=== PATIENT | female | born 1960 | race Caucasian/White ===

== ENCOUNTER → 2016-06-13 | Outpatient (CLI) | payer OTHER ==
[~2016-06-13] MED LIST: ACETAMINOPHEN-H1 TA2 PO; BUMETANIDE0.25 MG/ML PO; BUMETANIDE1 MG PO; BUMEX2.5 MG/10 IV; CEFAZOLIN2 GM/50 ML IV; CLEOCIN IV; CLINDAMYCIN HC300 MG PO; DOXYCYCLINE100 M3 PO; GENTAMICIN T; HYDROCODONE BIT1 T11 PO; IRON325 M3 PO; K-LOR20 MEQ PO; KLOR-CON M2020 ME1 PO; LASIX40 MG PO; LOSARTAN POTASS50 M1 PO; MERREM IV1 GM IV; ONDANSETRON ODT4 MG PO; PRIMAXIN 500 M500 MG IV; PROAIR HFA0.09 MG/AC PO; SILVADENE,SSD C50 GM T; VICODIN 5-3001 EACH PO; VITAMIN D50000 I3 PO; [UNRECOGNIZED DRUG - OTHER] IV
--- NOTE | ~2016-06-13 | PR ---
[place], [place] PROGRESS NOTE NAME: CAMRYN RAYMUNDO UNIT #: [id number] ROOM: DOCTOR: NISH ColemanSTAN BIRTHDATE: [birth year] DOS: 06/13/2016 A NEW WOUND CARE PROGRESS NOTE CHIEF COMPLAINT: Followup postop wound. HISTORY OF PRESENT ILLNESS: This is a patient known to me from last year. 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 She had had a fairly large wound there in the pannus area that was repeatedly getting infected, causing her pain, discomfort with multiple admissions for cellulitis. She eventually was seen by Dr. Ibrahim in the [facility], who is a plastic surgeon and underwent panniculectomy of this area. This was back in December. We have not seen her in the wound clinic since last July. After her surgery, she was admitted to [facility] for wound care therapy, she had been there for several months until just safely discharged home. She had a wound VAC on for several of those months and the wound VAC was just recently discontinued. The wound continued to heal fairly well with the wound VAC. She had a couple episodes where she said it looked like the wound had been getting infected and they had to use Dakin solution for it and most recently the foam has been kind of sliding around and is relatively shallow and causing more irritation than anything, so the wound VAC was discontinued, so she comes to our clinic for further wound care. She still does have an open area where the surgery had taken place. PAST MEDICAL HISTORY: Significant for cellulitis of the left lower leg, large pannus formation with deep seated wound and tunneling, morbid obesity, adult failure to thrive. She does have a history of hypertension, history of lymphedema, arthritis, asthma, x 2, exploratory laparotomy, hernia repair x 2. FAMILY HISTORY: Significant for diabetes. SOCIAL HISTORY: She smokes every day. Rarely drinks alcohol. ALLERGIES: PENICILLIN, BEES AND SURGICAL TAPE. MEDICATIONS: Are as follows: The last documented medication list that I have on our records include, this is a list back in 07/2015, gabapentin 300 mg at bedtime, losartan 50 mg daily, iron sulfate 325 daily, Bumex 1 mg twice daily, vitamin D2 50,000 unit capsule weekly on Saturday. Other than pain at the surgical site, she offers no other specific complaints. No documented fevers, no shortness of breath, no nausea or vomiting or diarrhea. OBJECTIVE: VITAL SIGNS: Are as follows: Temperature is 98.1, pulse of 74, respirations 18, blood pressure is 128/80. EXTREMITIES: The wound itself is measuring the following 2.7 cm in length x 13 cm in width and 0.1 in depth. There is some minimal fibrin slough present in the base of the wound, but overall looks fairly clean. There is no evidence of [place], [place] PROGRESS NOTE NAME: CAMRYN RAYMUNDO UNIT #: [id number] ROOM: DOCTOR: STAN MOCK M.D. BIRTHDATE: [birth year] cellulitis. It is a fairly shallow wound, but it is located kind of in the crevasse of the upper thigh area. No debridement was done. ASSESSMENT AND PLAN: The patient has a history of lymphedema with panniculectomy done and this past December with an open surgical wound that has been healing well with the wound VAC. The wound VAC has been discontinued. We will use an alginate for now for absorptive purposes. She has been using an ABD pad as well and Tegaderm to help keep the dressing in place. She has home health, who will help her with dressing changes and she is to follow back up in the wound clinic in one week. STAN MOCK MD CM:PATI [id number] STAN MOCK M.D. 06/14/16 1051 interface
== END ==
LOC: WOUNDCARE 01:25
DX: L97.122 Non-pressure chronic ulcer of left thigh with fat layer exposed (principal); I89.0 Lymphedema, not elsewhere classified; E66.01 Morbid (severe) obesity due to excess calories; I10 Essential (primary) hypertension; J45.909 Unspecified asthma, uncomplicated; F17.210 Nicotine dependence, cigarettes, uncomplicated; Z72.89 Other problems related to lifestyle

== ENCOUNTER → 2016-06-20 | Outpatient (CLI) | payer OTHER ==
--- NOTE | ~2016-06-20 | PR ---
[place], [place] PROGRESS NOTE NAME: CAMRYN RAYMUNDO UNIT #: [id number] ROOM: DOCTOR: NISH ColemanSTAN BIRTHDATE: [birth year] DOS: 06/20/2016 WOUND CARE FOLLOWUP NOTE CHIEF COMPLAINT: Open wound of the left thigh. HISTORY OF PRESENT ILLNESS: The location of the wound has been present since December. She had a panniculectomy done for severe lymphedema and pannus formation of the left upper thigh. She was in a rehabilitation center postoperatively for many months and was discharged home just recently. She came here for the wound care followup just last week. At that time, she still had an open wound from the surgical site that looked shallow. She had been on a Maxorb dressing with a Tegaderm adhesive to keep it in place as she had difficulty holding any dressings in place. We kept that dressing going; however, she noticed for the past couple of days it has been draining a lot more than before and the measurements are a lot bigger. PHYSICAL EXAMINATION: VITAL SIGNS: She is afebrile, pulse is 76, respirations 18, blood pressure is 134/92 and temperature is 98.2. WOUND EXAM: The wounded area is measuring bigger at 3.3 x 13.9 x 0.1. However, even around that the periwound area is markedly excoriated and what appears to be some epidermal denuding just from moisture, I believe. A culture of the wound was taken today for swab culture, but no debridement was done. The base of the wound itself looks fairly clean. ASSESSMENT AND PLAN: Increased drainage of a postop wound. There may be some element of bioburden here, so we will add silver to the dressing. She is on Maxorb, we will do Maxorb Silver and have her cover it with a foam. I think an Optifoam Gentle Sacrum will fit this wound as the Tegaderm is not very forgiving and does not have any absorptive properties at all and I think this is not going to be working for her at the present time and I would favor changing it on the daily basis until we get this drainage under control. A small bit of Betadine was applied to the periwound area where there was some drainage just coming through. So, we will go ahead and have her do this and have her follow up in one week. [place], [place] PROGRESS NOTE NAME: CAMRYN RAYMUNDO UNIT #: [id number] ROOM: DOCTOR: STAN MOCK M.D. BIRTHDATE: [birth year] STAN MOCK MD CM:PNTRANS [id number] STAN MOCK M.D. 06/20/16 1408 interface
== END ==
LOC: WOUNDCARE 02:48
DX: L97.122 Non-pressure chronic ulcer of left thigh with fat layer exposed (principal); I89.0 Lymphedema, not elsewhere classified; I48.91 Unspecified atrial fibrillation

== ENCOUNTER → 2016-07-04 | Outpatient (CLI) | payer OTHER ==
--- NOTE | ~2016-07-04 | PR ---
[place], [place] PROGRESS NOTE NAME: CAMRYN RAYMUNDO [facility] #: [id number] UNIT #: [id number] ROOM: DOCTOR: NISH ColemanSTAN BIRTHDATE: [birth year] DOS: 07/04/2016 CHIEF COMPLAINT: Open wound of the left thigh. HISTORY OF PRESENT ILLNESS: The location of the wound has been present since December. She had a panniculectomy done for severe lymphedema and pannus formation with recurrent ulcers and chronic recurrent cellulitis. This is of the upper left thigh. She was just recently discharged from rehabilitation center to home; she had a wound VAC on until just upon her discharge. We saw her approximately 2 weeks ago she missed her last appointment and it looked like the wound, which had been draining more and margins were increased and there was area of increased denuded skin to excessive of drainage. Her dressing was placed to a silver dressing and foam instead of Tegaderm. Cultures were obtained. The culture was positive for acinetobacter sensitive to quinolones. The patient was started on ciprofloxacin for a 2-week course. She is still on the antibiotics going to be completing them soon. She has no specific complaints. Overall, she is noticed less drainage and is wondering if she can use her lymphedema pumps. The pumps go all the way up her body and she is anxious to resume use of them. PHYSICAL EXAMINATION: VITAL SIGNS: She is afebrile, pulse is 80, respirations 18, and blood pressure is 134/86. The wound is measuring slightly smaller 2.5 x 12.5 x 0.1. There is some epithelialization noted within those margins as well in the upper part of the wound. There is really no necrotic tissue present. The debridement was not done at this time. ASSESSMENT AND PLAN: Chronic ulcer of the left upper thigh secondary to surgery. It is definitely seems to be improved this week from the last time we have seen her. I will continue with the same dressing. She is going to continue to complete her antibiotic course. I did advise that she can try her lymphedema pumps as long as she may notice some increased drainage, but as long as the wound margins they continue to improve it is okay, but if the wound margins look like they are getting bigger, we may have to hold off until the wound is healed more. Followup is in one week. [place], [place] PROGRESS NOTE NAME: CAMRYN RAYMUNDO UNIT #: [id number] ROOM: DOCTOR: STAN MOCK M.D. BIRTHDATE: [birth year] STAN MOCK MD CM:PATI [phone] STAN MOCK M.D. 07/04/161631 interface
== END ==
LOC: WOUNDCARE 02:23
DX: L97.122 Non-pressure chronic ulcer of left thigh with fat layer exposed (principal); I89.0 Lymphedema, not elsewhere classified; I48.91 Unspecified atrial fibrillation

== ENCOUNTER → 2016-07-11 | Outpatient (CLI) | payer OTHER ==
--- NOTE | ~2016-07-11 | PR ---
[place], [place] PROGRESS NOTE NAME: CAMRYN RAYMUNDO UNIT #: [id number] ROOM: DOCTOR: NISH ColemanSTAN BIRTHDATE: [birth year] DOS: 07/11/2016 CHIEF COMPLAINT: Open wound of the left thigh. HISTORY OF PRESENT ILLNESS: The location of the wound is present since December. She is status post panniculectomy done for severe lymphedema and pannus formation, which had recurrent ulcers and chronic recurrent cellulitis of the left upper thigh. She has been to the Wound Clinic now for approximately 4 weeks now. The wound was notably draining moderate amounts of drainage. Cultures were taken and it did grow Acinetobacter. She was treated with ciprofloxacin for 14 days, which seemed to really help the wound and the drainage at that time. However, she comes back today stating that it is still draining. She has finished her antibiotics. It is draining a fair amount as before, but it is slightly increased in tenderness especially above the wound, not on the wound itself but above the wound, it seems to be more tender and erythematous than before. It is also weeping up on that area. It is very difficult trying to get a dressing on that area that stays in place. I had recommended a foam over Maxorb silver; however, she continues to apply Tegaderm to that area. She did have a fair amount of denuded skin last week and continues to have an area where it looks like it is denuded from excessive drainage and possibly from trauma from the Tegaderm. She has no other specific complaints. PHYSICAL EXAMINATION: VITAL SIGNS: As follows, temp is 98.1, pulse of 88, respirations 20, blood pressure is 136/86. The wound is measuring smaller at 2 cm x 12.5 x 0.1. It definitely appear smaller to me than when she first came in. There is minimal fibrin slough present in the base of the wound. The periwound has some areas of denuded skin from what appears to be excessive drainage and possible trauma from the Tegaderm or Opsite that hat she is using to help hold the dressing in place, but the wound itself is looking pretty good and does appear to be healing in general. Due to the continued drainage and discomfort that she is complaining about, a culture was taken of the area. I did swab the denuded area with Betadine to see if we could help dry this up a little bit more, debridement was not done. ASSESSMENT AND PLAN: Surgical wound secondary to lymphedema. The wound itself is slowly healing; however, we continued to have some problems with drainage and we are having difficulty trying to keep the dressing in place. I would like to try to get away from Opsite or Tegaderm because it may be causing increased trauma to the skin. We will continue with the Maxorb silver. A culture was taken. I will put her on empiric doxycycline for now and then have her use a Superabsorbent secondary dressing such as Mextra. This was used today and we can order that or perhaps OptiLock for her to see if we can help control some of the drainage. Followup is in 1 week. If we continue to have issues with that, we will consider going to Iodosorb and an alginate to help dry up the area a bit more if we need to. Follow up in 1 week. She is to call us to let us know if she likes the secondary dressing or not. [place], [place] PROGRESS NOTE NAME: CAMRYN RAYMUNDO UNIT #: [id number] ROOM: DOCTOR: STAN MOCK M.D. BIRTHDATE: [birth year] STAN MOCK MD CM:PNHAYLEE [phone] STAN MOCK M.D. 07/12/16 0349 interface
== END ==
LOC: WOUNDCARE 03:00
DX: L97.122 Non-pressure chronic ulcer of left thigh with fat layer exposed (principal); I89.0 Lymphedema, not elsewhere classified

== ENCOUNTER → 2016-07-18 | Outpatient (CLI) | payer OTHER ==
--- NOTE | ~2016-07-18 | PR ---
[place], [place] PROGRESS NOTE NAME: CAMRYN RAYMUNDO UNIT #: [id number] ROOM: DOCTOR: STAN MOCK M.D. BIRTHDATE: [birth year] DOS: 07/18/2016 CHIEF COMPLAINT: Open wound of the left thigh. HISTORY OF PRESENT ILLNESS: Location: The wound has been present on the left upper thigh secondary to panniculectomy done for severe lymphedema and pannus formation. She was left with an open wound since December, which has been slowly healing. She has been coming to the Wound Care Clinic for 5 weeks now. Last week when she was here, she had increased drainage and discomfort. There was a lot of weeping around the area and redness and pain around the periwound area. She was started empirically on doxycycline. A culture was taken, which did not grow anything. It was negative. She says overall she is doing much better, drainage seems less. Pain is much improved, redness is improved as well. No fevers or chills. PHYSICAL EXAMINATION: VITAL SIGNS: Stable. Temperature is 98.2, pulse is 90, respirations 20, blood pressure is 140/86. WOUND EXAM: The wound is located in the left upper thigh area, medial aspect is measuring 2 x 13 x 0.1 cm. There is minimal fibrin slough. There is good healthy granulation tissue. The periwound area is much less excoriated than before. There is still some slight maceration, but overall the redness around the periwound is much improved from last week. Debridement was deferred at this time. ASSESSMENT AND PLAN: Surgical wound secondary to lymphedema. It is definitely improving in the width. The length is still about the same. There is definitely an improvement as far as drainage goes. I would like to continue with the current dressings since she still has at least a week's worth at home of Maxorb silver and then after that, we could consider going to Iodosorb and alginate together instead to help dry the wound up even further. We will consider this next week. Followup is in 1 week. The patient is going to continue with her antibiotics. [place], [place] PROGRESS NOTE NAME: CAMRYN RAYMUNDO UNIT #: [id number] ROOM: DOCTOR: STAN MOCK M.D. BIRTHDATE: [birth year] STAN MOCK MD CM:PATI [id number] TSAN MOCK M.D. 07/18/16 2355 interface
== END ==
LOC: WOUNDCARE 01:14
DX: L97.122 Non-pressure chronic ulcer of left thigh with fat layer exposed (principal); I89.0 Lymphedema, not elsewhere classified

== ENCOUNTER → 2016-07-25 | Outpatient (CLI) | payer OTHER ==
--- NOTE | ~2016-07-25 | PR ---
[place], [place] PROGRESS NOTE [id number] UNIT #: [id number] ROOM: DOCTOR: STAN MOCK M.D. BIRTHDATE: [birth year] DOS: 07/25/2016 SUBJECTIVE: This is routine wound care followup. CHIEF COMPLAINT: Open ulcer of the left thigh. HISTORY OF PRESENT ILLNESS: The location of the wound is on the left upper thigh secondary to panniculectomy done for severe lymphedema and pannus formation. She was left with an open wound since the surgery in December. It has been slowly healing. She has been coming to the Wound Clinic for 6 weeks now. Comorbid conditions are morbid obesity. She says overall she is doing much better. There is really no pain at the present time, which is a definite improvement. No fevers or chills are noted. PHYSICAL EXAMINATION: VITAL SIGNS: As follows: She is afebrile, pulse is 90, respirations 20, blood pressure is 124/82. WOUND EXAM: The wound is measuring 1.8 x 12.2 x 0.1. There is minimal fibrin slough around the periwound area and just kind of scattered throughout. There is still exposed subcutaneous tissue. A debridement was done today to remove fibrin and slough. This was accomplished with a curette. There was minimal bleeding. The only tissue removed was just nonviable fibrin and slough only. The patient tolerated the debridement well. Cetacaine spray was used for topical anesthesia. A curet was utilized, 100% of the wound was debrided selectively. The patient tolerated the debridement well. ASSESSMENT AND PLAN: Surgical wound, status post panniculectomy the wound is steadily improving and slowly healing. She continues to have problems with some drainage, but the Maxorb silver seems to be holding it steady for now. We will continue with this dressing. She has at least a week's worth of the dressing material at home, after that we may want to consider trying Iodosorb and Maxorb together. Followup is in one week. STAN MOCK MD CM:PATI [phone] STAN MOCK M.D. 07/26/16 0158 interface
== END ==
LOC: WOUNDCARE 01:10
DX: L97.122 Non-pressure chronic ulcer of left thigh with fat layer exposed (principal); I89.0 Lymphedema, not elsewhere classified; E66.01 Morbid (severe) obesity due to excess calories; I48.91 Unspecified atrial fibrillation

== ENCOUNTER → 2016-08-01 | Outpatient (CLI) | payer OTHER ==
--- NOTE | ~2016-08-01 | PR ---
[place], [place] PROGRESS NOTE NAME: CAMRYN [facility]AY[facility]UNDO [facility] #[facility] [id number] UNIT #: [id number] ROOM: DOCTOR: NISH ColemanSTAN BIRTHDATE: [birth year] DOS: 08/01/2016 CHIEF COMPLAINT: Followup of open ulcer of the left thigh. HISTORY OF PRESENT ILLNESS: Location of the wound is on the left upper thigh. It is secondary to panniculectomy done for severe lymphedema and pannus formation. She was left with a very large open wounds in December that has been gradually healing. She had a wound VAC on for several months and has been coming to the Wound Clinic after the wound VAC was discontinued for approximately 7 weeks now. Comorbid conditions are morbid obesity. Overall, she is doing better. She still has some discomfort around the periwound area from excessive drainage or irritation from dressings, but overall she feels it is definitely getting better. No fevers or chills are noted. PHYSICAL EXAMINATION: VITAL SIGNS: Stable. Temperature is 98.3, pulse of 88, respirations 20, blood pressure is 130/84. SKIN: The wound is measuring 1.8 x 10.5 x 0.1. There is definitely improvement in reduction in the area of the wound. There is minimal fibrin slough present in the base of the wound. There is exposed granulation tissue. The periwound does not appear to be infected. There is some moisture noted on the periwound from wound fluid dripping on to it, so that area is quite moist, so there is no obvious cellulitis noted. A selective debridement was done. The tissue removed was fibrin, slough and only this was a selective debridement. The instrument utilized was a curette. There was minimal bleeding that was controlled with pressure. Post-debridement measurements are unchanged. The patient tolerated the debridement well. Cetacaine spray was used for topical anesthesia. ASSESSMENT AND PLAN: Open ulcer of the left thigh, which is gradually improving. She still has quite a large amount of drainage still. There is no obvious sign of infection. She has been on Maxorb silver for some time. I would like to add Iodosorb to the regimen with plain Maxorb to see if we can help control the drainage a little bit better. We have tried using Stratasorb as secondary to dressing with the Tegaderm as the Tegaderm does somewhat pull the skin, so we will see if that will help a little bit more in the periwound area to help prevent excoriation. Follow up in 1 week. [place], [place] PROGRESS NOTE NAME: CAMRYN RAYMUNDO UNIT #: [id number] ROOM: DOCTOR: STAN MOCK M.D. BIRTHDATE: [birth year] STAN MOCK MD CM:PATI [phone] STAN MOCK M.D. 08/02/16 0257 interface
== END | disposition home or self-care (01) ==
LOC: WOUNDCARE 01:29
DX: L97.122 Non-pressure chronic ulcer of left thigh with fat layer exposed (principal); I89.0 Lymphedema, not elsewhere classified; E66.01 Morbid (severe) obesity due to excess calories

== ENCOUNTER → 2016-08-08 | Outpatient (CLI) | payer OTHER ==
--- NOTE | ~2016-08-08 | PR ---
[place], [place] PROGRESS NOTE NAME[id number] UNIT #: [id number] ROOM: DOCTOR: STAN MOCK M.D. BIRTHDATE: [birth year] DOS: 08/08/2016 CHIEF COMPLAINT: Open ulcer of the left thigh. HISTORY OF PRESENT ILLNESS: The location is the left upper thigh secondary to panniculectomy for severe lymphedema and pannus formation. She is left with a very large open wound after surgery since December and has been slowly healing. She has been coming to the Wound Clinic for 7 weeks now. She really does not have any new complaints. She says it is still drains quite a bit at times really depending on her level of activity and if she has her legs dangling down, it drains a lot more. There is no pain. No fevers or chills are noted. She has her help her change her dressings. She also has home health coming in. PHYSICAL EXAMINATION: VITAL SIGNS: She is afebrile, pulse of 82, respirations 20, blood pressure is 124/90. EXTREMITIES: The wound is measuring 2.5 x 11 x 0.1. There is still some maceration around the jone-wound. The granulation tissue appears healthy and clean with no visible necrotic tissue and there is no evidence of cellulitis. ASSESSMENT AND PLAN: Ulcer of the left thigh secondary to surgery, it seems to be taking quite some time for healing to occur. There is epithelialization around the jone-wound. There is no sign of an acute infection. We do have some difficulty with drainage and I would like to continue with an alginate, but I would like to add a collagen to the base of the wound first. So we will go ahead and do that this week and have her follow up in one week. STAN MOCK MD CM:PATI [phone] STAN MOCK M.D. 08/09/16 0416 interface
== END ==
LOC: WOUNDCARE 03:04
DX: L97.122 Non-pressure chronic ulcer of left thigh with fat layer exposed (principal); I89.0 Lymphedema, not elsewhere classified

== ENCOUNTER → 2016-08-22 | Outpatient (CLI) | payer OTHER ==
--- NOTE | ~2016-08-22 | PR ---
[place], [place] PROGRESS NOTE NAME: CAMRYN RAYMUNDO [facility] #: [id number] UNIT #: [id number] ROOM: DOCTOR: NISH ColemanSTAN BIRTHDATE: [birth year] DOS: CHIEF COMPLAINT: Chronic ulcer of the left thigh. HISTORY OF PRESENT ILLNESS: Location of the wound is the left upper thigh secondary to a panniculectomy that she had for severe lymphedema and pannus formation. She was left with a fairly large open wound after surgery back in December that has been slowly healing. She has been coming to the Wound Clinic for 10 weeks now, although she missed her appointment last week and we have not seen. She has no fevers or chills that she is aware of, but she is complaining of increasing pain in the left thigh. She does have a frequent bouts of pain and discomfort in the thigh area. She does have a large amounts of drainage. She says it still drains quite a bit and the drainage does tend to adhere to the surrounding skin which irritates the area quite a bit and there is increased drainage and discomfort on days when she is more active. We have a hard time getting a dressing to stay on the wound due to the location of it. It is quite difficult area to keep the dressing on. So, she does have some pain and discomfort of the left upper thigh when the area is touched which she had not complain of pain in the last couple of times I had seen her. PHYSICAL EXAMINATION: She is afebrile, pulse of 80, respirations 20, blood pressure is 130/92. The wound is marginally improved in the measurements at 2 x 12 x 0.1. There is granulation tissue. There is exposed subcutaneous tissue. There is also surrounding maceration around the jone-wound. There is also some fibrin slough present in the base of the wound. The left upper thigh area is markedly excoriated. There is some wetness there from persistent drainage and it is slightly warm and mildly to moderately tender with the palpation and it is about the area of . The rest of the periwound area looks good. A debridement was done today. The tissue removed was fibrin, slough and subcutaneous tissue. There was minimal amount of bleeding that was controlled with pressure. Post-debridement measurements are unchanged. The patient tolerated the debridement well. ASSESSMENT AND PLAN: Chronic surgical wound of the left thigh secondary to panniculectomy. It still has not made a whole lot of progress. I think that most difficult thing is controlling the drainage and having a dressing adhere to the wound in a consistent fashion. I would like to continue with alginate for now. Perhaps, we can consider changing it to a Mepitel transfer to see if this would better absorb drainage. Around the periwound area where it is quite excoriated, I would like to try Calazime and then Versatel over that because she still uses Tegaderm and I think Tegaderm is persistently causing excoriation and problems with pain. It does appear that there may be a mild early cellulitis starting. So, we will start the patient empirically on doxycycline twice a day now for 10 days and have her follow up in one week. I did ask the patient to go ahead and get some blood work done, so hopefully we will get those results before her next appointment. At some point, we may want to consider perhaps going back to the wound VAC just to help control some of the excessive drainage, so we will discuss this with the patient upon her next visit. [place], [place] PROGRESS NOTE NAME: CAMRYN RAYMUNDO UNIT #: [id number] ROOM: DOCTOR: STAN MOCK M.D. BIRTHDATE: [birth year] STAN MOCK MD CM:PNHAYLEE [id number] STAN MOCK M.D. 08/23/166 interface
[2016-08-22 11:05] LABS: BASO # 0.1 10*3/uL (0.0-0.1); BASO % 0.9 % (0.0-1.0); EOS # 0.1 10*3/uL (0.0-0.4); EOS % 1.2 % (1.0-4.0); HEMATOCRIT 43.2 % (37.0-47.0); HEMOGLOBIN 13.7 g/dl (12.0-16.0); LYMPH # 0.9 10*3/uL (1.3-4.4); LYMPH % 15.8 % (27.0-41.0); MEAN CELL VOLUME 89.3 fl (81.0-99.0); MEAN CORPUSCULAR HGB 28.3 pg (27.0-31.0); MEAN CORPUSCULAR HGB CONC 31.7 g/dl (33.0-37.0); MEAN PLATELET VOLUME 11.5 fl (9.6-12.3); MONO # 0.4 10*3/uL (0.1-1.0); MONO % 7.2 % (3.0-9.0); NEUT # 4.3 10*3/uL (2.3-7.9); NEUT % 74.6 % (47.0-73.0); PLATELET COUNT AUTOMATED 280 10*3/uL (130-400); RED BLOOD COUNT 4.84 10*6/uL (4.10-5.10); RED CELL DISTRI WIDTH 14.4 % (0-14.5); WHITE BLOOD COUNT 5.8 10*3/uL (4.8-10.8)
[2016-08-22 11:33] LABS: ALBUMIN 3.1 gm/dl (3.1-4.5); ALKALINE PHOSPHATASE 84 U/L (45-117); BILIRUBIN, TOTAL 0.5 mg/dl (0.2-1.0); BUN 11 mg/dl (7-24); CARBON DIOXIDE 32 mmol/L (21-32); CHLORIDE 105 mmol/L (98-107); EST GLOM FILT AFRICAN AMERICAN > 60 ml/min; GLUCOSE 100 mg/dL (65-99); SGOT/AST 14 IU/L (3-35); SGPT/ALT 17 U/L (12-78); SODIUM 142 mmol/L (136-145); TOTAL PROTEIN 7.8 gm/dL (6.4-8.2)
[2016-08-22 11:34] LABS: PREALBUMIN 15 mg/dl (20-40)
== END | disposition home or self-care (01) ==
LOC: WOUNDCARE 02:29 → LAB 02:29 → WOUNDCARE 09:45
PROVIDERS: Internal Medicine
DX: T81.89XA Other complications of procedures, not elsewhere classified, initial encounter (principal)

== ENCOUNTER → 2016-08-29 | Outpatient (CLI) | payer OTHER ==
--- NOTE | ~2016-08-29 | PR ---
[place], [place] PROGRESS NOTE NAME: CAMRYN RAYMUNDO UNIT #: [id number] ROOM: DOCTOR: NISH ColemanSTAN BIRTHDATE: [birth year] DOS: 08/29/2016 ROUTINE WOUND CARE FOLLOWUP CHIEF COMPLAINT: Chronic ulcer of the left thigh. HISTORY OF PRESENT ILLNESS: Location of the wound is the left upper thigh secondary to panniculectomy, which she had back in December. The wound has been steadily but very slowly healing. We have a lot of issues with controlling the drainage and due to where the location of the wound is, it is difficult trying to get a dressing to stick on the area. She uses the Tegaderm to help hold the dressing in place. This is quite adherent and has been causing some problems with excoriation and discomfort and irritation around the periwound area. Last week when she came, it had looked like there was increased irritation around the periwound, possibly an early cellulitis had been starting. She was started on doxycycline empirically and Calazime and Versatel to the periwound. However, she says she is having so much more drainage this week. It is after 3 hours of soaking wet, she is using the Maxorb and OptiLock. She says she thinks that the Maxorb is irritating the skin and it is sticking to the wound and at times, it is rubbing and there is irritation. No overt fevers or chills are noted, just increased discomfort. She is also complaining of some numbness of her foot, which she said she has had before off and on, but usually it goes away, but has been present since yesterday, pins and needles sensation. PHYSICAL EXAMINATION: VITAL SIGNS: Blood pressure is 128/80, pulse of 64, respirations 20, temperature is 97.9. WOUND EXAMINATION: The wound is measuring slightly bigger at 2 x 13.5 x 0.1. It overly looks about the same. I do not see any huge change in the wound. The base looks clean. There is no necrotic tissue. The periwound more than the posterior part of the wound is excoriated. There appears to be a fissuring type of wound present from there. I think from irritation from excessive drainage and possibly adherence of the dressing to the wound as well. There is some erythema and some slight tenderness, but does not appear to be markedly different than before in the past. No debridement was done today. A swab culture of the wound was taken today. LABORATORY DATA: Her labs show white count of 5.8, hemoglobin of 13.7 and platelets of 280, ESR is 26. BUN is 11, creatinine is 0.68, sodium 142, potassium 4, bicarbonate is 32. Her albumin is good at 3.1, prealbumin is slightly low at 15. ASSESSMENT AND PLAN: Chronic postsurgical wound that has stalled and slightly increased in margin. There is a lot more drainage now than before. There is likely some critical colonization that is now being taken care of I think. So, a culture was taken. We will stop the doxycycline and change her empirically to Cipro until the cultures are back. I would like to try topical Silvadene and have her use the Mepitel Transfer to see if that will help control some of the drainage and now, we can use Silvadene on the open excoriated areas as well. She does have some protein malnutrition. So, I will discuss with her about [place], [place] PROGRESS NOTE NAME: CAMRYN RAYMUNDO UNIT #: [id number] ROOM: DOCTOR: STAN MOCK M.D. BIRTHDATE: [birth year] protein supplementation. I did also advise her to take probiotics while on antibiotics as well as taking a multivitamin with vitamin C and zinc supplementation. She is to follow up with us in 1 week and at that time, we may consider restarting the wound VAC. STAN MOCK MD CM:PNHAYLEE [id number] STAN MOCK M.D. 08/30/16 0915 interface
== END ==
LOC: WOUNDCARE 02:54
DX: L97.122 Non-pressure chronic ulcer of left thigh with fat layer exposed (principal); I89.0 Lymphedema, not elsewhere classified

== ENCOUNTER 2016-09-05 11:19 | Inpatient (IN) | payer OTHER ==
[~2016-09-05] VITALS: Ht 177.8 cm; Wt 223.3 kg
--- NOTE | ~2016-09-05 | WRIGHTHP ---
[place], [place] PATIENT HISTORY AND PHYSICAL EXAM NAME: CAMRYN RAYMUNDO [facility] #: [id number] UNIT #: [id number] ROOM: 532 DOCTOR: EVER SOUZA MD BIRTHDATE: [birth year] DOS: 09/05/2016 HISTORY OF PRESENT ILLNESS: The patient is a 56-year-old female with a past medical history of: 1. Morbid obesity. 2. Surgical removal of left lower thigh pannus excision followed by nonhealing wound in the left thigh. 3. Benign essential hypertension. 4. Chronic lymphedema. 5. Adult failure to thrive. The patient presented to the Emergency Department with increasing redness and cellulitis in the left ankle, with a wound behind the left ankle and she was admitted for wound management and cellulitis. No chest pain. No shortness of breath. No other GI or urinary symptoms. REVIEW OF SYSTEMS: LUNGS: No increasing shortness of breath or wheezing. GASTROINTESTINAL: No nausea, vomiting, diarrhea or constipation. CARDIOVASCULAR: No chest pains or palpitations. FAMILY HISTORY: Noncontributory. HOME MEDICATIONS: The patient is taking albuterol inhaler p.r.n. ALLERGIES: Known allergies to BEE STING, PENICILLIN AND TAPE. PHYSICAL EXAMINATION: GENERAL: Alert and oriented x 3, morbidly obese, with generalized weakness. HEENT AND NECK: Extraocular movements are intact. Sclerae are anicteric. Oral mucosa is moist and clean. No obvious facial weakness. Neck is supple without any lymphadenopathy. No thyromegaly. No JVD. No carotid arterial bruits. LUNGS: Clear to auscultation. No wheezing. No rhonchi. CARDIOVASCULAR SYSTEM: Heart rate is regular in rate and rhythm. S1 and S2 normally audible. No significant murmur or any other abnormal cardiac sounds. ABDOMEN: Soft, nontender. No obvious organomegaly. Bowel sounds are present. No obvious herniation. EXTREMITIES: Without significant cyanosis. Warm to touch. The patient has a large wound on the inner side of the lower left thigh with dressing and cellulitis involving the left ankle with a wound behind it with severe and chronic leg edema and stasis dermatitis. CENTRAL NERVOUS SYSTEM: Alert and oriented x 3. Cranial nerves II-XII are intact. Speech is normal. The patient is able to move all extremities. Normal muscle strength. Deep tendon reflexes are equal on both sides. Plantars were downgoing. IMPRESSION AND PLAN: 1. Nonhealing wound of the left thigh with history of Staphylococcus aureus infection. 2. Cellulitis involving left ankle and a wound behind left ankle, to be treated [place], [place] PATIENT HISTORY AND PHYSICAL EXAM NAME: CAMRYN RAYMUNDO UNIT #: [id number] ROOM: [facility] DOCTOR: EVER SOUZA MD BIRTHDATE: [birth year] with antibiotics. The patient on meropenem and I have consulted Infectious Disease specialist, Dr. Geronimo Noble and loan specialist, Dr. Calvo for help with management. 3. Ultrasound of the left leg showed no deep venous thrombosis. Normal serum electrolytes. Normal CBC. 4. Benign essential hypertension. Blood pressures to be monitored and treated. 5. Morbid obesity. The patient to work with Dietary. 6. Advance adult failure to thrive. We are taking bedsore precautions using air mattress, turning her every 2 hours and consulted physical therapy. EVER SOUZA MD CM:HISPHYS:PATIENT HISTORY AND PHYSICAL EXAMINATION [phone] PABLO SOUZA MD 09/24/16 1135 [email or web address]
--- NOTE | ~2016-09-05 | PR ---
[place], [place] PROGRESS NOTE NAME: CAMRYN RAYMUNDO UNIT #: [id number] ROOM: 532 DOCTOR: RONEN NAVARRO MD BIRTHDATE: [birth year] DOS: SUBJECTIVE: The patient is not having any new complaints. The left leg is quite painful. OBJECTIVE: VITAL SIGNS: Graphic trend shows a pressure 125/65, pulse of 70, respirations 20, temperature 97.9. LUNGS: Clear. HEART: Regular. ABDOMEN: Obese. EXTREMITIES: Right leg is not swollen, left leg is pretty swollen. The wound noticed in the right ankle area and chronic wound on the left upper thigh where her pannus was removed. LABORATORY DATA: Wound culture is growing MRSA for which the patient is on IV vancomycin. WBC count is normal at 5.3. ASSESSMENT AND PLAN: 1. Methicillin-resistant Staphylococcus aureus of the wound and IV antibiotics. The patient is having problems with IV access, PICC line will be placed. 2. Adult failure to thrive. The patient may require placement to short Nursing Rehab for continued IV antibiotics. Social service consultation will be obtained. 3. Hypertension, controlled. RONEN NAVARRO MD CM:PNTRANS [phone] RONEN NAVARRO MD 09/08/163 interface
--- NOTE | ~2016-09-05 | PR ---
[place], [place] PROGRESS NOTE [id number] #: [id number] ROOM: 532 DOCTOR: RONEN NAVARRO MD BIRTHDATE: [birth year] DOS: 09/10/2016 SUBJECTIVE: The patient is not having any complaints today. OBJECTIVE: VITAL SIGNS: Graphic trend shows pressure 160/75, pulse of 55, respirations 20, temperature 97.8. LUNGS: Clear. HEART: Regular. ABDOMEN: Obese. EXTREMITIES: Cellulitis noted on the left lower leg. The wound upper thigh area appears to be granulating well. LABORATORY DATA: Blood culture shows no bacterial growth, but that is preliminary. Wound culture shows light MRSA. ASSESSMENT AND PLAN: 1. Methicillin-resistant Staphylococcus aureus of the wound, on IV vancomycin. PICC line has been placed. The patient to go to home with IV antibiotics. 2. Benign hypertension. The patient unfortunately is no longer taking antihypertensives. I encouraged the patient to start the antihypertensives. 3. Pannus removal with a chronic wound that is slowly healing. 4. Morbid obesity. The patient plans to go home. RONEN NAVARRO MD CM:PNTRANS [id number] RONEN NAVARRO MD 09/10/16 2020 interface
--- NOTE | ~2016-09-05 | PR ---
[place], [place] PROGRESS NOTE NAME: CAMRYN RAYMUNDO [facility] #: [id number] UNIT #: [id number] ROOM: 532 DOCTOR: NISH ColemanSTAN BIRTHDATE: [birth year] DOS: 09/07/2016 WOUND CARE FOLLOWUP NOTE SUBJECTIVE: The patient reports that her distal part of the left leg is now more itchy. 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 She reports that it is still difficult to get a dressing on to stay in that area. They are using the OpSite for the left upper thigh wound and her legs feel quite heavy. It is very difficult for her to even move her leg. OBJECTIVE: Her vital signs are stable. Temperature is 97.8, pulse of 85, respirations 18, blood pressure is 124/82. The left upper thigh has a dressing in place. This was not removed, as it is very difficult to get a dressing to stay in place; however, the area of erythema of the left thigh and tenderness that was present is definitely improved. The distal part of the leg; however, remains moderately to severely swollen. There is still erythema, it is I would say slightly less. It does not seem to be as tender, but it is still erythematous. There is still a large amount of induration on the posterior distal calf. The area where there was drainage coming from it seems to be about the same. There does appear to be less drainage. Overall it is not constantly dripping as it did before. Her toes are warm and feet are warm. LABORATORY DATA: Today show white count of 5.3, hematocrit of 37. Her blood cultures are negative. Her wound culture from 09/05/2016 is skin catalina, probable contaminant. Her MRSA isolate is negative. ASSESSMENT AND PLAN: For her surgical wound, we will continue with the present dressings. The cellulitis of the left thigh is definitely stable and improving. The distal part of the leg; however, remains cellulitic. There is some mild improvement. She is on meropenem and vancomycin. Her wound culture from that wound is negative so far other than skin catalina. I have gone ahead and ordered another Doppler ultrasound to specifically ask to rule out an abscess that was requested initially, but was not commented on during the report, so I will go ahead and do that. She does not appear septic. I would like to continue with the dressings if they can get them on when I came into the room, she did not have a dressing on. It apparently is quite difficult to try to get dressing stay in that area. However, I would try to encourage the use of the dressing if possible and also I will try to elevate her leg and use warm compresses as well. I have written an order for a repeat ultrasound; however, ultrasound just notified me that they did look to see if there was an abscess when she did her ultrasound 2 days ago and it was negative at that time, so we will go ahead and cancel that since they have already done it. Infectious Disease is following antibiotics for her leg and I suspect that the patient will likely require IV antibiotics to be given for possibly at least 2 weeks. [place], [place] PROGRESS NOTE NAME: CAMRYN RAYMUNDO UNIT #: [id number] ROOM: [facility] DOCTOR: STAN MOCK M.D. BIRTHDATE: [birth year] STAN MOCK MD CM:PATI [id number] STAN MOCK M.D. 09/07/16 1047 interface
--- NOTE | ~2016-09-05 | CON ---
[place], [place] REPORT OF CONSULTATION [id number] UNIT #: [id number] ROOM: 532 DOCTOR: NISH ColemanSTAN BIRTHDATE: [birth year] DOS: 09/06/2016 WOUND CARE CONSULTATION CHIEF COMPLAINT: Cellulitis of the leg. HISTORY OF PRESENT ILLNESS: This is a patient known to the wound clinic. She is 56 years old with a history of lymphedema and morbid obesity. She has been followed in the wound clinic for the past several weeks now for a surgical wound of the left upper thigh. She had a panniculectomy done by a surgeon at the [facility] and was left with an open surgical wound. She was initially followed in a assisted facility and then was discharged and was following up with the wound clinic. The wound has been very slow to heal on the left upper thigh. We have had some problems trying to have get a dressing to adhere to it and there have been problems with controlling drainage. The last culture that was obtained in the wound clinic grew Pseudomonas that was resistant to quinolones. The patient was seen in the wound clinic yesterday and was complaining of feeling ill, nauseated with increased pain of the left leg. She did have pain with the left upper thigh area, however, was complaining of pain and swelling and redness on the distal part of her leg. There was a dripping wound noted on the distal part of her leg as well, which does not seem to be related to her wound on the left upper thigh. She does have a history of lymphedema, has not been able to get into her lymphedema pumps and has not been able to have lymphedema therapy since the wound on her thigh has not healed yet, so this further complicate issues as well. Due to the patient's complaints and the increased pain, erythema and swelling of the distal part of the left leg, it was felt that admission was warranted. She was sent to the ER for an evaluation and was admitted for this problem. PAST MEDICAL HISTORY: Significant for cellulitis; history of asthma, which is chronic; lymphedema of both lower extremities, left being much worse than the right; she is morbidly obese with a BMI of 60-69; chronic wound of the left upper thigh; recurrent cellulitis of the thigh; history of sepsis due to cellulitis and history skin candidiasis. She is not diabetic. PAST SURGICAL HISTORY: She is status post x 2, tubal ligation and umbilical hernia repair. SOCIAL HISTORY: She does not drink alcohol. She is a nonsmoker. She lives with her . FAMILY HISTORY: Significant for brain cancer, diabetes and thyroid disease. REVIEW OF SYSTEMS: This morning, she says overall she does not think that the left leg seems any better after she has been receiving antibiotics, has not noticed a significant change in the pain or the swelling of her distal part of the leg. She says that the upper part of the thigh, however, seems better today, it is not as tender for sure as it was yesterday. In addition, she is complaining that the dressing that I had ordered for her on the distal part of the leg as well as the left upper thigh really did not stay on very well, it [place], [place] REPORT OF CONSULTATION NAME: CAMRYN RAYMUNDO UNIT #: [id number] ROOM: [facility] DOCTOR: STAN MOCK M.D. BIRTHDATE: [birth year] pretty much stayed on for just a few hours and then fell off. She does complain of some dyspnea on exertion, she is having to use her inhalers more often. Her nausea has improved. She has no diarrhea, no abdominal pain, no overt fevers. No chest pains. Other review of systems such as ENT, cardiovascular, GI, neurologic and are negative or either stated in the preceding were not pertinent or were negative for the symptoms and/or complaints related to the medical problem. ALLERGIES: BEE STINGS, PENICILLIN AND TAPE. CURRENT MEDICATIONS: That have been ordered are as follows: She is on meropenem 1 g IV, looks like twice a day; Dakin solution. We had ordered nystatin powder. We had ordered Tylenol 1000 mg q. 6 hours p.r.n., vancomycin 1000 mg IV and albuterol nebs 3 mL q. 6 hours p.r.n. PHYSICAL EXAMINATION: VITAL SIGNS: Today, her temperature is 98.1, T-max is 99, pulse of 87, respirations 18, blood pressure is 142/77 and pulse ox is 92% on room air. GENERAL: This is a female who appears about her stated age, is morbidly obese, pleasant and cooperative to examination, in no acute distress. HEENT: Her oropharynx is clear. Extraocular movements are intact. Sclerae are anicteric. I did not appreciate any JVD. LUNGS: Clear to auscultation anteriorly. CARDIOVASCULAR: S1, S2, regular, rate and rhythm. ABDOMEN: Morbidly obese, positive bowel sounds, soft and nontender. EXTREMITIES: She has a left upper thigh wound that is deep in the crevice of the skin folds. It looks fairly clean. The measurements are essentially 13 cm long. There is really no overt necrotic tissue. The erythema and tenderness that was present yesterday around the periwound of the left upper thigh is definitely improved. There is some excoriation, but it is definitely improved. The distal part of this leg, however, remains markedly swollen, indurated and erythematous. I do not see any improvement in the erythema since yesterday. There is a draining wound approximately 2-3 inches in length x 3-4 inches in width. It is draining clear serous fluid that is about the same foot. Her pedal pulses are difficult to feel due to the massive edema, but her feet are warm, toes are warm, she has good capillary refill. She did have a culture taken of the distal part of the left leg, which was no white cells, no organisms yet. Her blood cultures are pending. Her white count is 7, hemoglobin is 13 and platelets are 324. I have requested a Doppler ultrasound to evaluate for any type of abscess and for a DVT. It does say there is severe subcutaneous edema within the left calf and there is no evidence of a DVT, but there is no mention of an abscess. Her Chem-7 shows a sodium of 142, potassium 4.3, chloride 102, BUN of 10, creatinine is 0.73 and glucose is 100. ASSESSMENT AND PLAN: Severe cellulitis of the distal part of the left leg secondary to severe lymphedema and there is an open wound there, which is relatively new, this was not present before. She is on IV antibiotics. It looks like Infectious Disease has been consulted. Imaging studies, I did ask for an ultrasound. I am going to call Ultrasound Department again to see if [place], [place] REPORT OF CONSULTATION NAME: CAMRYN RAYMUNDO UNIT #: [id number] ROOM: [facility] DOCTOR: STAN MOCK M.D. BIRTHDATE: [birth year] there is any way to specify whether there was any kind of fluid collection in that area that was noted. We may want to consider further imaging study. Apparently in the past, she has had to be sent out to alternative places due to her weight, is unable to be fit into an MRI machine. I will check also to see if perhaps she is a candidate to go through the CT scanner. She does not appear septic. Dressings have been ordered. I would use Dakins for now to clean that area as well as the surgical wound and Silvadene for the distal part of the wound, it is really hard to get a dressing on there. I have ordered a foam and alginate to see if this will help keep it covered and protect it and to keep the dressing in place. In the meantime, she can also elevate her leg and use warm compresses. As far as her left upper thigh surgical wound, it has been present for a long time. It has been very slow to heal. The last culture grew Pseudomonas and she did have some problems with periwound cellulitis, which also seems already improved after starting IV antibiotics. At some point, we may want to consider going back to the wound VAC to at least control some of the drainage and hopefully this will further stimulate the healing process. Thank you for the consult. I will follow along with you. STAN MOCK MD CM:CONSTR:REPORT OF CONSULTATION 1058 09/06/16 1149 interface
--- NOTE | ~2016-09-05 | PR ---
[place], [place] PROGRESS NOTE NAME[id number] UNIT #: [id number] ROOM: 532 DOCTOR: EVER SOUZA MD BIRTHDATE: [birth year] DOS: 09/07/2016 SUBJECTIVE: The patient is feeling better and has been seen by Dr. Calvo for her thigh and leg wounds. OBJECTIVE: VITAL SIGNS: Blood pressure 124/82, heart rate 85 beats per minute, breathing 18 times per minute, temperature 98 degrees Fahrenheit. GENERAL APPEARANCE: The patient is alert and oriented x 3, in no visible distress. HEENT AND NECK: Exam within normal limits. CARDIOVASCULAR SYSTEM: Heart rate is regular in rate and rhythm. S1 and S2 normally audible. LUNGS: Clear to auscultation. ABDOMEN: Soft, nontender. No obvious organomegaly. Bowel sounds are present. EXTREMITIES: Without significant cyanosis or edema. IMPRESSION: 1. Nonhealing wound of the left thigh being followed by Dr. Calvo. 2. Cellulitis involving the left ankle and wound behind the left ankle. Antibiotics to be decided by Dr. Geronimo Noble, the ID specialist. The patient is presently on meropenem and vancomycin. An ultrasound of the lower extremity has been ordered to look for abscess. 3. Morbid obesity. The patient working with Dietary. 4. Advanced adult failure to thrive. We are taking bedsore precautions, turning her every 2 hours and using an air mattress and also taking fall precautions. Physical Therapy is on consult. 5. Benign essential hypertension. Blood pressure is being monitored and treated. EVER SOUZA MD CM:PNTRANS [id number] EVER SOUZA MD 09/08/16 0022 interface
--- NOTE | ~2016-09-05 | PR ---
[place], [place] PROGRESS NOTE [id number] #: [id number] ROOM: 532 DOCTOR: RONEN NAVARRO MD BIRTHDATE: [birth year] DOS: SUBJECTIVE: The patient is not having any new complaints. Her pain is under control. She does not have any fever or chills. OBJECTIVE: VITAL SIGNS: Blood pressure is 126/88, pulse of 71, respirations 20, temperature 97.5. LUNGS: Clear. HEART: Regular. ABDOMEN: Obese. EXTREMITIES: Left leg still pretty swollen with cellulitis and poorly healing wound around the left calf, left heel and also poorly healing wound which is postoperative from pannus removal on the left thigh. ASSESSMENT AND PLAN: 1. Methicillin-resistant Staphylococcus aureus of the wound on IV antibiotics. The patient was to have a PICC line, the order was given in the morning, but the PICC line has not been placed and the patient had to have another peripheral IV put in and I am hoping to have the PICC line placed today. 2. Adult failure to thrive, social service consultation obtained. We will talk to them tomorrow morning to see whether the patient would benefit from placement for rehab purposes versus home with home health and IV antibiotics. 3. Benign hypertension, controlled. 4. Morbid obesity. The patient is able to get around. She has been using the bathroom and has also received physical therapy here. RONEN NAVARRO MD CM:PNTRANS [id number] RONEN NAVARRO MD 09/09/16 0814 interface
--- NOTE | ~2016-09-05 | PR ---
[place], [place] PROGRESS NOTE NAME: CAMRYN RAYMUNDO [facility] #: [id number] UNIT #: [id number] ROOM: 532 DOCTOR: NISH ColemanSTAN BIRTHDATE: [birth year] DOS: 09/10/2016 WOUND CARE FOLLOWUP NOTE The patient is going to be discharged today on IV antibiotics. HISTORY OF PRESENT ILLNESS: The patient reports a lot of itching around the lower part of the wound and continued pain. It may not be as severe as it was when she was admitted, but it is pretty tender still. No other specific complaints are noted. PHYSICAL EXAMINATION: VITAL SIGNS: Her temperature is 97.7, pulse of 86, respirations 18, blood pressure is 166/86. WOUND EXAMINATION: In general, in the distal part of the wound, the dressing was removed. The area of erythema that was marked has not spread. It has turned slightly darker color, it is not as bright red as it was. It is still somewhat warm and tender. I am able to push down upon it a little bit more than I was before. There is pitting edema. There is a wound that is fairly superficial that is draining serous fluid, but it does not appear to be as what as it had been before. The leg remains moderately swollen as before. Per patient, the left upper thigh wound has already been dressed by staff, so that was not removed and the patient reports that wound is stable and she is feeling better. LABORATORY DATA: She has not had any recent blood work. Her culture from the drainage of the fluid that was taken back on the was positive for MRSA, multidrug resistant. ASSESSMENT AND PLAN: Severe lymphedema of the distal lower extremity and upper extremity. There is some cellulitis still present on examination. She is going to be discharged on IV vancomycin and p.o. Cipro. ID has not seen her yet, but hopefully will be able to see her before she is discharged. There was no sign of an abscess on ultrasound that was done when she was here, further imaging studies may be considered as an outpatient if we continue to have issue with this area. In the meantime, discharge orders were written to help keep the area dry. She has Mepitel Transfer, which she can use at home and she can go back to her Iodosorb. I would continue to use the Dakin's for now as well, she can do that with the left upper thigh wound. Hopefully, the next time she comes to the clinic, we will consider reordering the wound VAC for the left upper thigh wound. Wound orders were written. The patient is going to follow up in the Wound Clinic this Saturday. [place], [place] PROGRESS NOTE NAME: CAMRYN RAYMUNDO UNIT #: [id number] ROOM: [facility] DOCTOR: STAN MOCK M.D. BIRTHDATE: [birth year] STAN MOCK MD CM:PATI [id number] STAN MOCK M.D. 09/10/16 1523 interface
--- NOTE | ~2016-09-05 | DS ---
[place], [place] DISCHARGE SUMMARY [id number] UN[facility] #: [id number] ROOM: 532 DOCTOR: RONEN NAVARRO MD BIRTHDATE: [birth year] DOS: 09/10/2016 DISCHARGE DIAGNOSES: 1. Cellulitis of the left lower leg. 2. Poorly healing wound of the left thigh with methicillin-resistant Staphylococcus aureus. 3. Benign hypertension. The patient is no longer taking antihypertensives. 4. Morbid obesity. 5. Removal of the pannus. 6. Adult failure to thrive. MEDICATIONS ON DISCHARGE: Vancomycin 2 grams twice a day and Ceftin 250 twice daily for 5 days. HOSPITAL COURSE: The patient is 56 years old, comes in with complaints of swelling and redness of the left leg. Please refer H and P dictated by Dr. Stiles for further details. After admission, the patient had a venous Doppler done, which ruled out DVT. Wound cultures were ordered. ID consultation was obtained as well as consultation with Dr. Calvo from wound care center. Hypertension has been poorly controlled, but the patient has not taken any medicine for the last several months. The patient has adult failure to thrive. Social service was consulted for home IV antibiotics. PICC line was placed. Cultures have grown MRSA. Vancomycin will be continued. The patient is otherwise stable and is not having any problems. Plan is to discharge her to home today, encouraged the patient to restart her antihypertensives. For right now, her medicines will be vancomycin 2 grams twice a day and Ceftin 250 twice daily for 5 days. RONEN NAVARRO MD CM:DISCHARG [id number] RONEN NVAARRO MD 09/10/16 1434 interface
--- NOTE | ~2016-09-05 | PR ---
[place], [place] PROGRESS NOTE [id number] #: [id number] ROOM: 532 DOCTOR: STAN MOCK M.D. BIRTHDATE: [birth year] DOS: 09/05/2016 The patient will be admitted through the Emergency Department and I ordered the dressing changes for her. I will go ahead and order a venous Doppler if not done as well as for the ultrasound to check the distal part of the left lower extremity to see if there is a fluid or abscess collection in the distal part of the leg that might be contributing to her pain. Further imaging studies may be considered in the future if she does not improve with IV antibiotics. STAN MOCK MD CM:PATI [id number] STAN MOCK M.D. 09/07/16 0314 interface
[~2016-09-05 11:19] MED LIST changes: -CIPRO500 MG PO; -PROAIR HFA8.5 GM INH; -VANCO 2 GR2 GM/250 M IV
[2016-09-05 11:36] VITALS: BP 130/94
[2016-09-05 12:37] LABS: BASO % 0.4 % (0.0-1.0); EOS # 0.1 10*3/uL (0.0-0.4); EOS % 1.9 % (1.0-4.0); HEMATOCRIT 42.2 % (37.0-47.0); HEMOGLOBIN 13.2 g/dl (12.0-16.0); LYMPH # 1.1 10*3/uL (1.3-4.4); LYMPH % 16.2 % (27.0-41.0); MEAN CELL VOLUME 89.2 fl (81.0-99.0); MEAN CORPUSCULAR HGB 27.9 pg (27.0-31.0); MEAN CORPUSCULAR HGB CONC 31.3 g/dl (33.0-37.0); MONO # 0.5 10*3/uL (0.1-1.0); MONO % 7.2 % (3.0-9.0); NEUT # 5.2 10*3/uL (2.3-7.9); NEUT % 73.9 % (47.0-73.0); PLATELET COUNT AUTOMATED 324 10*3/uL (130-400); RED BLOOD COUNT 4.73 10*6/uL (4.10-5.10); RED CELL DISTRI WIDTH 13.8 % (0-14.5)
[2016-09-05 12:55] LABS: BUN 10 mg/dl (7-24); CARBON DIOXIDE 29 mmol/L (21-32); CHLORIDE 102 mmol/L (98-107); EST GLOM FILT AFRICAN AMERICAN > 60 ml/min; GLUCOSE 100 mg/dL (65-99); POTASSIUM 4.3 mmol/L (3.5-5.1); SODIUM 142 mmol/L (136-145)
[2016-09-05 13:18] VITALS: BP 150/98
[2016-09-05] MEDS ORDERED: PROAIR HFA8.5 GM INH (14:18)
[2016-09-05 16:00] VITALS: BP 123/76
[2016-09-05 20:00] VITALS: BP 148/70
[2016-09-06] VITALS: BP 123/61
[2016-09-06 08:00] VITALS: BP 142/77
[2016-09-06 12:00] VITALS: BP 133/86
[2016-09-06 16:00] VITALS: BP 141/77
[2016-09-06 20:00] VITALS: BP 132/73
[2016-09-07] VITALS: BP 132/73; BP 134/74
[2016-09-07 04:00] VITALS: BP 135/70
[2016-09-07 05:54] LABS: ALBUMIN 2.4 gm/dl (3.1-4.5); ALKALINE PHOSPHATASE 70 U/L (45-117); BILIRUBIN, TOTAL 0.3 mg/dl (0.2-1.0); BUN 10 mg/dl (7-24); CARBON DIOXIDE 30 mmol/L (21-32); CHLORIDE 105 mmol/L (98-107); EST GLOM FILT AFRICAN AMERICAN > 60 ml/min; GLUCOSE 100 mg/dL (65-99); POTASSIUM 4.1 mmol/L (3.5-5.1); SGOT/AST 11 IU/L (3-35); SGPT/ALT 14 U/L (12-78); SODIUM 143 mmol/L (136-145); TOTAL PROTEIN 6.7 gm/dL (6.4-8.2); VANCOMYCIN TROUGH 12.6 ug/mL (10-20)
[2016-09-07 05:59] LABS: BASO % 0.6 % (0.0-1.0); EOS # 0.2 10*3/uL (0.0-0.4); EOS % 4.3 % (1.0-4.0); HEMOGLOBIN 11.3 g/dl (12.0-16.0); LYMPH % 18.5 % (27.0-41.0); MEAN CELL VOLUME 90.2 fl (81.0-99.0); MEAN CORPUSCULAR HGB 27.6 pg (27.0-31.0); MEAN CORPUSCULAR HGB CONC 30.5 g/dl (33.0-37.0); MEAN PLATELET VOLUME 11.6 fl (9.6-12.3); MONO # 0.6 10*3/uL (0.1-1.0); MONO % 10.3 % (3.0-9.0); NEUT # 3.5 10*3/uL (2.3-7.9); NEUT % 65.9 % (47.0-73.0); PLATELET COUNT AUTOMATED 306 10*3/uL (130-400); RED CELL DISTRI WIDTH 14.1 % (0-14.5); WHITE BLOOD COUNT 5.3 10*3/uL (4.8-10.8)
[2016-09-07 08:00] VITALS: BP 124/82
[2016-09-07 12:00] VITALS: BP 130/74
[2016-09-07 16:00] VITALS: BP 132/82
[2016-09-07 20:00] VITALS: BP 112/86
[2016-09-08] VITALS: BP 132/70
[2016-09-08 04:00] VITALS: BP 125/65
[2016-09-08 08:00] VITALS: BP 148/65
[2016-09-08 12:00] VITALS: BP 145/80
[2016-09-08 16:00] VITALS: BP 132/86
[2016-09-08 20:00] VITALS: BP 142/98
[2016-09-09] VITALS: BP 126/88
[2016-09-09 08:00] VITALS: BP 131/72
[2016-09-09 12:00] VITALS: BP 144/94
[2016-09-09 20:00] VITALS: BP 150/65
[2016-09-10] VITALS: BP 160/75
[2016-09-10 06:08] LABS: BUN 8 mg/dl (7-24); EST GLOM FILT AFRICAN AMERICAN > 60 ml/min
[2016-09-10] MEDS ORDERED: VANCO 2 GR2 GM/250 M IV (07:32)
[2016-09-10 08:00] VITALS: BP 166/86
[2016-09-10] MEDS ORDERED: CIPRO500 MG PO (08:06)
[2016-09-10 12:00] VITALS: BP 164/82
[2016-09-10 16:00] VITALS: BP 174/89
== END 2016-09-10 19:22 | disposition home health service (06) | DRG 872 ==
LOC: ED 11:19 → EDHOLD 12:10 → 5E 12:10
PROVIDERS: Emergency Medicine; Internal Medicine Hospice and Palliative Medicine; Internal Medicine Infectious Disease
PROC: 02HV33Z Insertion of Infusion Device into Superior Vena Cava, Percutaneous Approach (ICD-10-PCS; principal; 2016-09-09)
DX: A41.9 Sepsis, unspecified organism (principal); I10 Essential (primary) hypertension; Z68.44 Body mass index [BMI] 60.0-69.9, adult; L03.116 Cellulitis of left lower limb; B37.2 Candidiasis of skin and nail; J45.909 Unspecified asthma, uncomplicated; B95.62 Methicillin resistant Staphylococcus aureus infection as the cause of diseases classified elsewhere; E66.01 Morbid (severe) obesity due to excess calories; R62.7 Adult failure to thrive; I89.0 Lymphedema, not elsewhere classified; S81.802D Unspecified open wound, left lower leg, subsequent encounter; Z91.030 Bee allergy status; Z88.0 Allergy status to penicillin; Z91.09 Other allergy status, other than to drugs and biological substances; Z98.51 Tubal ligation status; Z83.3 Family history of diabetes mellitus; Z80.8 Family history of malignant neoplasm of other organs or systems; Z83.49 Family history of other endocrine, nutritional and metabolic diseases; Z91.048 Other nonmedicinal substance allergy status; Z79.1 Long term (current) use of non-steroidal anti-inflammatories (NSAID)

== ENCOUNTER → 2016-09-05 | Outpatient (CLI) | payer OTHER ==
[~2016-09-05] MED LIST changes: +CIPRO500 MG PO; +PROAIR HFA8.5 GM INH; +VANCO 2 GR2 GM/250 M IV
--- NOTE | ~2016-09-05 | PR ---
[place], [place] PROGRESS NOTE NAME: CAMRYN RAYMUNDO 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 SUBJECTIVE: This patient has been coming to the Wound Clinic for several weeks now. She has had a very slow healing surgical wounds that was from a panniculectomy done back in December. The wound has been very slow to heal. We have had difficulty in trying to get dressing to adhere to the area. She had a wound VAC initially. The wound VAC was discontinued. She has had a lot of problems with excoriation and large amounts of drainage coming from the wound. Last week, we had put her empirically on Cipro, was switched from doxy to Cipro. A culture was obtained of the drainage and she was asked to use Silvadene and Mepitel transfer. She says the Mepitel transfer seems to be controlling the drainage little bit better, but she still has lot of pain especially around the left upper thigh area. She is also complaining of pain on the left lower leg. There is drainage seeping from the wound down the distal part of the leg seen there as well the leg is red and she has not had a documented fever, but feels like she is getting sick. She is noticing that she is starting to develop sores, fever, and blisters which she gets every time she gets a fever and she is feeling nauseous; this started about yesterday, but has gotten much worse today. OBJECTIVE: VITAL SIGNS: The patient is afebrile. Temperature 97.8, pulse 82, respirations 20, blood pressure is 128/84. SKIN: The wound itself is measuring slightly smaller at 1.8 x 13 x 0.1. It looks fairly clean, does not look much different to me. The left upper thigh periwound area is erythematous, but moderately tender and slightly warm to touch. There is also an area on the lower part of the leg right above the foot medial posterior that is weeping just copious amounts of serous fluid and there is an area of the wound that is measuring 10 x 4 x 0.1 and it is essentially an area of macerated tissue that is just weeping. There is surrounding erythema that is markedly tender and warm and quite edematous. She has massive edema of the leg distal lower extremity. ASSESSMENT AND PLAN: Chronic wound of the left upper thigh with evidence of cellulitis culture. Previous culture was growing Pseudomonas resistant to Cipro. She was placed on Dakin's, but at this time, we need to switch it to a different antibiotic that will control the infection better. She also has a new area of cellulitis that was not there before. It is not related to the wound. I do think it is completely separate issue with a new wound and obvious cellulitis. She is on oral antibiotics, it has failed. She is continuing to have drainage, pain and erythema. So, we will go ahead and have her be evaluated in the ER. She will likely need to be admitted. The culture that grew from the last week was resistant to Cipro. A culture was taken this week as well of the distal wound. She does not appear to be septic, but will likely need admission, wound orders. We will continue with the silver dressing Mepitel plus Arglaes powder if it is available and then we will substitute Silvadene if this Arglaes powder is not available. [place], [place] PROGRESS NOTE NAME: CAMRYN RAYMUNDO UNIT #: [id number] ROOM: DOCTOR: STAN MOCK M.D. BIRTHDATE: [birth year] STAN MOCK MD CM:PNHAYLEE [id number] STAN MOKC M.D. 09/05/169 interface
== END ==
LOC: WOUNDCARE 00:16
DX: L97.122 Non-pressure chronic ulcer of left thigh with fat layer exposed (principal); I89.0 Lymphedema, not elsewhere classified; I48.91 Unspecified atrial fibrillation

== ENCOUNTER → 2016-09-20 | Outpatient (CLI) | payer OTHER ==
[~2016-09-20] MED LIST changes: +CIPRO500 MG PO; +PROAIR HFA8.5 GM INH; +VANCO 2 GR2 GM/250 M IV
== END ==
LOC: WOUNDCARE 00:28
DX: L97.122 Non-pressure chronic ulcer of left thigh with fat layer exposed (principal); L97.221 Non-pressure chronic ulcer of left calf limited to breakdown of skin; I89.0 Lymphedema, not elsewhere classified; E66.01 Morbid (severe) obesity due to excess calories

== ENCOUNTER → 2016-09-27 | Outpatient (CLI) | payer OTHER | LOC: WOUNDCARE 02:32 | DX: T81.89XD Other complications of procedures, not elsewhere classified, subsequent encounter (principal); L97.221 Non-pressure chronic ulcer of left calf limited to breakdown of skin; L97.121 Non-pressure chronic ulcer of left thigh limited to breakdown of skin; E66.01 Morbid (severe) obesity due to excess calories; I89.0 Lymphedema, not elsewhere classified; Z68.1 Body mass index [BMI] 19.9 or less, adult; Y83.8 Other surgical procedures as the cause of abnormal reaction of the patient, or of later complication, without mention of misadventure at the time of the procedure ==

== ENCOUNTER → 2016-10-02 | Outpatient (CLI) | payer OTHER | LOC: WOUNDCARE 04:16 | DX: T81.89XD Other complications of procedures, not elsewhere classified, subsequent encounter (principal); L97.122 Non-pressure chronic ulcer of left thigh with fat layer exposed; L97.221 Non-pressure chronic ulcer of left calf limited to breakdown of skin; I89.0 Lymphedema, not elsewhere classified; E66.01 Morbid (severe) obesity due to excess calories; Y83.8 Other surgical procedures as the cause of abnormal reaction of the patient, or of later complication, without mention of misadventure at the time of the procedure ==

== ENCOUNTER 2016-10-15 15:20 | Inpatient (IN) | payer OTHER ==
[~2016-10-15] VITALS: Ht 175.3 cm; Wt 223.2 kg
--- NOTE | ~2016-10-15 | CON ---
[place], [place] REPORT OF CONSULTATION NAME: CAMRYN RAYMUNDO UNIT #: [id number] ROOM: 532 DOCTOR: RILEY TANNER MD BIRTHDATE: [birth year] DOS: 10/16/2016 HISTORY OF PRESENT ILLNESS: A 56-year-old morbidly obese female with lymphedema and open wound, multiple sites at the limb and the thigh, complains of palpitations and I was consulted. EKG basically showed an episode of sinus tachycardia. No cardiac dysrhythmia. No ventricular or supraventricular dysrhythmia. The patient has no significant cardiac issues in the past. She states that she always feels palpitations and short of breath. PAST MEDICAL HISTORY: Bronchial asthma, lymphedema and morbid obesity, BMI of 60-69. SOCIAL HISTORY: Denies any tobacco abuse or drug abuse. PAST SURGICAL HISTORY: History of , history of left inguinal repair, umbilical hernia repair and ovarian dysfunction. FAMILY HISTORY: Positive for coronary artery disease. ALLERGIES: BEE STINGS. HOME MEDICATIONS: Only on albuterol. REVIEW OF SYSTEMS: CONSTITUTIONAL: No fever, no chills. HEENT: No visual disturbances or hearing problems. CARDIOVASCULAR: As described in HPI. GASTROINTESTINAL: No nausea, no vomiting. GENITOURINARY: No dysuria. NEUROLOGICAL: No syncope. All other review of systems are negative. PHYSICAL EXAMINATION: VITAL SIGNS: Blood pressure is 119/70. HEENT: Unremarkable. Pupils are equally reactive to light and accommodation. NECK: Supple, no JVD. LUNGS: Clear to auscultation and percussion. CARDIOVASCULAR: Heart sounds are regular. ABDOMEN: Morbidly obese. EXTREMITIES: About 3+ edema. NEUROLOGICAL: Stable. LABORATORY DATA: EKS shows sinus rhythm to sinus tachycardia with nonspecific ST-T changes. Sodium 140, potassium 3.9, BUN and creatinine are normal. Hemoglobin 13.1, hematocrit within normal limits. IMPRESSION: Cellulitis of the lower extremity, the patient with morbid obesity and palpitations and chronic lymphedema. [place], [place] REPORT OF CONSULTATION NAME: CAMRYN RAYMUNDO UNIT #: [id number] ROOM: 532 DOCTOR: RILEY TANNER MD BIRTHDATE: [birth year] RECOMMENDATIONS: I agree with the present management. We will get an echocardiogram at this point to assess the ejection fraction to rule out any diastolic dysfunction. Continue the other medications and I will closely follow up. Thank you for this interesting consultation. RILEY TANNER MD CM:CONSTR:REPORT OF CONSULTATION 3 10/16/16 0825 interface
--- NOTE | ~2016-10-15 | PR ---
[place], [place] PROGRESS NOTE NAME: CAMRYN RAYMUNDO [facility] #: [id number] UNIT #: [id number] ROOM: 532 DOCTOR: RONEN NAVARRO MD BIRTHDATE: [birth year] DOS: 10/19/2016 SUBJECTIVE: The patient is doing fine without any complaints this morning. OBJECTIVE: VITAL SIGNS: Graphic trend shows a pressure of 126/78, pulse of 81, respirations 18, temperature 97.9. LUNGS: Diminished breath sounds. HEART: Regular. ABDOMEN: Obese. EXTREMITIES: Decreased edema. Echocardiogram was not a good study because the window is extremely poor, but the ejection fraction appears to be more than 55, mild concentric LVH is noted. No labs available this morning. ASSESSMENT AND PLAN: 1. Cellulitis of the right lower leg, on IV antibiotics. 2. Methicillin-resistant Staphylococcus aureus Morganella morganii of the wound, on IV antibiotics. PICC line was placed to go to [facility] today. 3. Left ventricular hypertrophy. We will add antihypertensives and continue diuretics. 4. Acute diastolic congestive heart failure. Clinically, the patient has improved. We will repeat a chest x-ray today. RONEN NAVARRO MD CM:PNTRANS 1 RONEN NAVARRO MD 10/19/16911 interface
--- NOTE | ~2016-10-15 | CON ---
[place], [place] REPORT OF CONSULTATION [id number] #: [id number] ROOM: 532 DOCTOR: NISH ColemanSTAN BIRTHDATE: [birth year] DOS: 10/16/2016 WOUND CARE CONSULTATION CHIEF COMPLAINT: Chronic wound of the left upper thigh and lower calf. HISTORY OF PRESENT ILLNESS: This is a 56-year-old female known to the Wound Clinic for a very slowly healing wound of the left upper thigh. She apparently underwent surgical removal of a large pannus of the left upper thigh back in 12/2015. She was left with an open wound post-surgery and has been coming to the Wound Clinic for approximately 15 weeks now. She had a recent admission for severe cellulitis approximately 3 weeks ago of the left upper thigh as well as cellulitis, which was new on the left distal right calf and ankle area. She had been placed on IV antibiotics for 14 days and this was discontinued per Infectious Disease. She was seen after that in the Wound Clinic where it looked like the wound had stabilized. The cellulitis seemed to be controlled; however, over the past week, she has had increased drainage, culture was taken from Home Health that felt there was a sign of infection and the culture grew multiple organisms, resistant to many oral antibiotics. The patient was admitted per PCP for wound infection. She has been using Iodosorb for antibacterial purposes and to help dry up the areas as well as Maxorb and a foam-type dressing over that. However, it is difficult trying to find a dressing that will stay in the place of the wound and keep it intact. Apparently, when she gets up to move around, the dressings come right off and it is very difficult trying to get a dressing to stay intact. Also she states that she has not been able to use her lymphedema pumps either. I had also recommended that she follow up with the Lymphedema Clinic to help with her severe lymphedema, but she has not been able to follow up with them either. PAST MEDICAL HISTORY: Significant for recurrent cellulitis of the left lower extremity, lymphopenia, open wounds of the lower limb, sepsis, skin Candidiasis, wound infection. History of asthma, lymphedema, morbid obesity with a BMI of 60-69.9. SOCIAL HISTORY: The patient is a nonsmoker, does not use drugs, rarely consumes alcohol. PAST SURGICAL HISTORY: She is status post x 2, left inguinal hernia repair, umbilical hernia repair, D and C, ovarian dysfunction, surgical correction of ovarian torsion. FAMILY HISTORY: Significant for thyroid disorder in the mother, diabetes in father, history of brain cancer, diabetes and thyroid disease. ALLERGIES: BEE STINGS, SEVERE; PENICILLIN; AND TAPE. REVIEW OF SYSTEMS: She currently denies any documented fevers. She says she thought she was getting a fever blister the other day, but does not feel it now. She does have some discomfort at the left upper thigh. There is excoriation on her right upper thigh too from constant rubbing of the areas. She offers no [place], [place] REPORT OF CONSULTATION NAME: CAMRYN RAYMUNDO UNIT #: [id number] ROOM: [facility] DOCTOR: STAN MOCK M.D. BIRTHDATE: [birth year] other specific complaints. OBJECTIVE: VITAL SIGNS: Temperature 97.3, pulse 93, respirations 20, blood pressure 144/49. WOUND EXAMINATION: The wound was examined. She has 2 open areas on the left upper thigh. The left thigh wound is measuring approximately 10.5 to 11.5 in length and approximately 0.5 to 1 cm in width. There is some depth to it about approximately 0.1 to 0.2. There is some fibrin slough present, more so than the last time I had seen it. It does seem to be excoriated around the area as well. The periwound area is slightly tender and warm. It is slightly erythematous as well. The distal lower leg wound is also open and weeping at approximately 5 x 5 cm x 0.1. Severe edema as noted. It is slightly erythematous. Cultures done from the grew E. coli and Staph aureus, which was MRSA. This apparently was from left lower leg wound. She had 2 cultures done, but they are both labeled One is labeled the left thigh and that is growing E. coli and Staph aureus. The one in the distal left lower leg is Staph aureus and Morganella. Her medications are vancomycin in 2250 mg IV as well as meropenem 1000 mg IV daily. She also has some excoriations noted on the right upper thigh and also there is some fungal-type appearance on the crevice on the right calf noted as well, it is not open. LABORATORY DATA: Her most recent labs show white count of 6.4, platelets of 290, BUN of 12, creatinine of 0.7, C-reactive protein is 60.63. PLAN: Chronic left upper thigh wound secondary to surgical excision of a panniculectomy with recurrent wound infection, multiple organisms on cultures. She had been on Dakin's apparently at home as well when we had restarted that, so I would like to try different cleansing agent. I would like to try Hibiclens to see if we can help clean the area better and use Bactroban for the Staph aureus and also TheraHoney. She is allergic to bee stings, but she says he has been on honey before. I would like to try to keep the rest of the periwound area open if possible to see if we can avoid keeping anything moist or wet against the periwound area. For the distal wound, we can use the same thing except I would use a netting that is what has been using and that seems to keep things in place. She definitely needs lymphedema therapy and I believe that there is a Lymphedema Clinic at the [facility]. I will try to obtain information for her for this as well. Thank you for this consult. I will follow along with you. [place], [place] REPORT OF CONSULTATION NAME: CAMRYN RAYMUNDO UNIT #: [id number] ROOM: 532 DOCTOR: STAN MOCK M.D. BIRTHDATE: [birth year] STAN MOCK MD CM:CONSTR:REPORT OF CONSULTATION 1241 10/16/16 1334 interface
--- NOTE | ~2016-10-15 | PR ---
[place], [place] PROGRESS NOTE NAME: CAMRYN RAYMUNDO UNIT #: [id number] ROOM: 532 DOCTOR: RONEN NAVARRO MD BIRTHDATE: [birth year] DOS: SUBJECTIVE: The patient has no complaints today. She is getting up out of bed to go to the bathroom and refused the offloading yesterday. OBJECTIVE: VITAL SIGNS: This morning, blood pressure is 138/85, pulse of 83, respirations 16, temperature 97.3. LUNGS: Diminished breath sounds, clear. HEART: Regular. Few PVCs on the monitor. EXTREMITIES: Decreased edema on the right. Left has decreased redness. Poorly healing wound at the previous site of pannus removal seems to be much rice drier today. Chest x-ray showed CHF which is in comparison from 2 months ago. Vancomycin trough was likely on the high side. ASSESSMENT AND PLAN: 1. Chronic lymphedema. Even though the chest x-ray shows congestive heart failure, clinically the patient does not appear to be in congestive heart failure, but one dose of Lasix will be given this morning. Pulse ox is normal in the high 90s. 2. Previous history of hypertension. The patient is not taking any antihypertensive because she refuses to. Echocardiogram was ordered. I do not have the report yet. 3. Cellulitis with methicillin-resistant Staphylococcus aureus, Morganella morganii. Intravenous antibiotics can be changed to Rocephin upon discharge, also continue the patient on intravenous vancomycin. The PICC line was placed. The plan is to discharge to [facility] tomorrow once precertification is obtained. RONEN NAVARRO MD CM:PNTRANS [id number] RONEN NAVARRO MD 10/18/16 0859 interface
[2016-10-15 16:00] VITALS: BP 146/96
[2016-10-15 18:39] LABS: BUN 12 mg/dl (7-24); C-REACTIVE PROTEIN 0.63 MG/DL (0-0.3); CARBON DIOXIDE 31 mmol/L (21-32); CHLORIDE 104 mmol/L (98-107); EST GLOM FILT AFRICAN AMERICAN > 60 ml/min; GLUCOSE 90 mg/dL (65-99); POTASSIUM 3.9 mmol/L (3.5-5.1); SODIUM 140 mmol/L (136-145)
[2016-10-15 19:35] LABS: BASO % 0.6 % (0.0-1.0); EOS # 0.2 10*3/uL (0.0-0.4); EOS % 2.5 % (1.0-4.0); HEMOGLOBIN 13.1 g/dl (12.0-16.0); LYMPH # 0.9 10*3/uL (1.3-4.4); LYMPH % 14.3 % (27.0-41.0); MEAN CELL VOLUME 90.7 fl (81.0-99.0); MEAN CORPUSCULAR HGB 27.6 pg (27.0-31.0); MEAN CORPUSCULAR HGB CONC 30.5 g/dl (33.0-37.0); MEAN PLATELET VOLUME 12.2 fl (9.6-12.3); MONO # 0.5 10*3/uL (0.1-1.0); MONO % 7.3 % (3.0-9.0); NEUT # 4.8 10*3/uL (2.3-7.9); NEUT % 75.1 % (47.0-73.0); PLATELET COUNT AUTOMATED 290 10*3/uL (130-400); RED BLOOD COUNT 4.74 10*6/uL (4.10-5.10); RED CELL DISTRI WIDTH 14.9 % (0-14.5); WHITE BLOOD COUNT 6.4 10*3/uL (4.8-10.8)
[2016-10-15 20:00] VITALS: BP 122/68
[2016-10-16] VITALS: BP 119/78
[2016-10-16 08:00] VITALS: BP 144/49
[2016-10-16 12:00] VITALS: BP 143/78
[2016-10-16 16:00] VITALS: BP 137/74
[2016-10-16 20:00] VITALS: BP 133/63
[2016-10-17] VITALS: BP 131/86
[2016-10-17 08:00] VITALS: BP 127/75
[2016-10-17 12:00] VITALS: BP 142/89
[2016-10-17 16:00] VITALS: BP 135/78
[2016-10-17 20:00] VITALS: BP 125/67
[2016-10-18] VITALS: BP 138/85
[2016-10-18 07:57] LABS: BASO % 0.6 % (0.0-1.0); EOS # 0.4 10*3/uL (0.0-0.4); HEMATOCRIT 41.4 % (37.0-47.0); HEMOGLOBIN 12.9 g/dl (12.0-16.0); LYMPH % 19.5 % (27.0-41.0); MEAN CELL VOLUME 90.6 fl (81.0-99.0); MEAN CORPUSCULAR HGB 28.2 pg (27.0-31.0); MEAN CORPUSCULAR HGB CONC 31.2 g/dl (33.0-37.0); MEAN PLATELET VOLUME 11.4 fl (9.6-12.3); MONO # 0.5 10*3/uL (0.1-1.0); MONO % 9.4 % (3.0-9.0); NEUT # 3.4 10*3/uL (2.3-7.9); NEUT % 63.3 % (47.0-73.0); PLATELET COUNT AUTOMATED 242 10*3/uL (130-400); RED BLOOD COUNT 4.57 10*6/uL (4.10-5.10); WHITE BLOOD COUNT 5.3 10*3/uL (4.8-10.8)
[2016-10-18 08:00] VITALS: BP 139/97
[2016-10-18 08:31] LABS: BUN 10 mg/dl (7-24); CARBON DIOXIDE 31 mmol/L (21-32); CHLORIDE 106 mmol/L (98-107); EST GLOM FILT AFRICAN AMERICAN > 60 ml/min; GLUCOSE 101 mg/dL (65-99); POTASSIUM 4.1 mmol/L (3.5-5.1); SODIUM 140 mmol/L (136-145)
[2016-10-18 16:00] VITALS: BP 141/96
[2016-10-18 20:00] VITALS: BP 128/65
[2016-10-19] VITALS: BP 136/87
[2016-10-19 08:00] VITALS: BP 126/78
[2016-10-19] MEDS ORDERED: CEFTRIAXONE1 GM IJ (08:39)
[2016-10-19] MEDS ORDERED: COZAAR25 M1 PO (08:39)
[2016-10-19] MEDS ORDERED: VANCO 1.751.75 GM/25 IV (08:39)
[2016-10-19] MEDS ORDERED: LASIX40 MG PO (08:39)
[2016-10-19] MEDS ORDERED: BACTROBAN OINT0.9 GM T (08:39)
[2016-10-19] MEDS ORDERED: REMEDY WITH OLI1 PAS T (08:39)
[2016-10-19] MEDS ORDERED: CLOTRIM ANTIFUNGAL1% T (08:39)
[2016-10-19 12:00] VITALS: BP 126/75
[2016-10-19 16:00] VITALS: BP 145/84
== END 2016-10-19 18:11 | disposition other institution (70) | DRG 602 ==
LOC: 5E 15:20
PROVIDERS: Internal Medicine
PROC: 02HV33Z Insertion of Infusion Device into Superior Vena Cava, Percutaneous Approach (ICD-10-PCS; principal; 2016-10-17)
DX: L03.116 Cellulitis of left lower limb (principal); I50.31 Acute diastolic (congestive) heart failure; Z68.45 Body mass index [BMI] 70 or greater, adult; E66.01 Morbid (severe) obesity due to excess calories; R62.7 Adult failure to thrive; I11.0 Hypertensive heart disease with heart failure; I89.0 Lymphedema, not elsewhere classified; J45.909 Unspecified asthma, uncomplicated; B95.62 Methicillin resistant Staphylococcus aureus infection as the cause of diseases classified elsewhere; Z82.49 Family history of ischemic heart disease and other diseases of the circulatory system; Z91.030 Bee allergy status; Z83.49 Family history of other endocrine, nutritional and metabolic diseases; Z83.3 Family history of diabetes mellitus; Z80.8 Family history of malignant neoplasm of other organs or systems; Z88.0 Allergy status to penicillin; Z91.048 Other nonmedicinal substance allergy status; Z79.51 Long term (current) use of inhaled steroids

== ENCOUNTER → 2016-11-07 | Outpatient (CLI) | payer OTHER ==
[~2016-11-07] MED LIST changes: +BACTROBAN OINT0.9 GM T; +CEFTRIAXONE1 GM IJ; +CLOTRIM ANTIFUNGAL1% T; +COZAAR25 M1 PO; +REMEDY WITH OLI1 PAS T; +VANCO 1.751.75 GM/25 IV
--- NOTE | ~2016-11-07 | PR ---
[place], [place] PROGRESS NOTE NAME: CAMRYN RAYMUNDO [facility] #: [id number] UNIT #: [id number] ROOM: DOCTOR: NISH ColemanSTAN BIRTHDATE: [birth year] DOS: 11/07/2016 WOUND CARE PROGRESS NOTE CHIEF COMPLAINT: Followup of left thigh ulcer. HISTORY OF PRESENT ILLNESS: The patient is known to the Wound Clinic for a chronic wound of the left upper thigh. She has a history of severe lymphedema, morbid obesity. She underwent panniculectomy back in 2016 and has had a chronic wound since then that has been healing slowly. She has had a couple bouts of recurrent wound infection and cellulitis of the upper thigh as well as recently had a problem with wound on the distal part of her leg with severe cellulitis and lymphedema that was chronic and draining. She had a recent hospital admission and was sent home on IV antibiotics. She was sent home actually to the alf for a week or two that required antibiotics covering MRSA and pseudomonas. She has been back home now and comes in for her followup appointment. She says overall she is feeling much better. The distal wounds on the leg have healed. They have been able to find a netting that will keep the dressing in place on the left upper thigh that was ordered large enough for her thigh, and it seems to really help as well. She is using an antifungal cream on the periwound area, which has definitely also helped with the itching that she had around the periwound. She does not report any change as far as odor, fever, chills, pain or discomfort. OBJECTIVE: VITAL SIGNS: Stable. Temperature is 98.1, pulse is 80, respirations 22, blood pressure of 106/60. The wound on the left upper thigh is measuring 1 x 12.7 x 0.1, actually I would say the depth is actually 0.2 in some places. It looks fairly clean. There is really no overt necrotic tissue. There is still some maceration around the jone-wound. There is no odor present. There is no severe erythema. There is no sign of an acute infection. The distal wound is healed like we said before. No debridement was done. ASSESSMENT AND PLAN: Chronic lymphedema wound status post surgical resection. It is stable at this point. Infection seems to be controlled. We will continue with the present dressing. She is TheraHoney and Bactroban as well as Maxorb which we will continue for now. It does seem to have controlled a lot of the infection and she is using Hibiclens at home to wash the wound with. I would try to back down on that. She can use it once a week for the wound, but otherwise use normal saline for the wound. In the meantime, followup within 1 week. The patient is a nonsmoker and nondrinker. [place], [place] PROGRESS NOTE NAME: CAMRYN RAYMUNDO UNIT #: [id number] ROOM: DOCTOR: STAN MOCK M.D. BIRTHDATE: [birth year] STAN MOCK MD CM:PATI [id number] STAN MOCK M.D. 11/07/16 1202 interface
== END | disposition home or self-care (01) ==
LOC: WOUNDCARE 09:18
DX: L97.122 Non-pressure chronic ulcer of left thigh with fat layer exposed (principal); I89.0 Lymphedema, not elsewhere classified; E66.01 Morbid (severe) obesity due to excess calories; B95.62 Methicillin resistant Staphylococcus aureus infection as the cause of diseases classified elsewhere; B96.5 Pseudomonas (aeruginosa) (mallei) (pseudomallei) as the cause of diseases classified elsewhere

== ENCOUNTER → 2016-11-13 | Outpatient (CLI) | payer OTHER ==
--- NOTE | ~2016-11-13 | PR ---
[place], [place] PROGRESS NOTE NAME: CAMRYN RAYMUNDO [facility] #: [id number] UNIT #: [id number] ROOM: DOCTOR: NISH ColemanSTAN BIRTHDATE: [birth year] DOS: 11/13/2016 CHIEF COMPLAINT: Chronic ulcer of the left upper thigh. HISTORY OF PRESENT ILLNESS: A 56-year-old female with morbid obesity, severe lymphedema who has had a surgical wound of the left upper thigh for almost a year now. She has been coming to the Wound Clinic for 21 weeks. It is a wound of the left upper thigh that was from a panniculectomy that was done at the [facility]. She has had multiple bouts of cellulitis and wound infection within these 21 weeks, most recently admitted to the hospital for recurrent cellulitis and infection and is currently on oral Cipro to be completed tomorrow. Overall, she is stable. She has not had any increased drainage, in fact the drainage has slowed down quite a bit. She is using TheraHoney and an alginate to the dressing. There is less pain overall. No fevers or chills and she is stable in that regard. She is going to be going back to work now and is going to schedule for lymphedema consultation coming up. SOCIAL HISTORY: She is really a nonsmoker but does smokes on social occasions only and nondrinker. PHYSICAL EXAMINATION: VITAL SIGNS: Stable. Temperature is 97.8, pulse is 90, respirations are 20, blood pressure is 130/86. The measurements are 1.5 x 13.2 x 0.4, although when I examined it and I examined it with the light directed at the wound. There really does not appear to be any significant change in the appearance of the wound in fact the wound looks pretty clean. There is still some maceration around the periwound. There is no odor. There is no overt cellulitis, and actually, the distal part of the wound appears to have some epithelial tissue over it now that is more noticeable than on previous occasions. No debridement was done. ASSESSMENT AND PLAN: Chronic surgical wound, which is very slowly healing. She has had multiple bouts of infection currently does not seem to have any type of infection, clinically drainage is better controlled. The wound edges are slightly thickened and we may need to consider debridement next week if the wound remains stalled. The depth for some reason is measuring deeper; however, clinically, there does not appear to be any change in the depth of the wound upon my examination today. It is a difficult place to examine due to the natural crevasse that is apparent with the wound. Hopefully, we will be able to change to the collagen, I would like to try and see if insurance will approve [place] for her and will likely continue to need an alginate over that as well. Followup in one week. [place], [place] PROGRESS NOTE NAME: ZACKARYCAMRYN M UNIT #: [id number] ROOM: DOCTOR: STAN MOCK M.D. BIRTHDATE: [birth year] STAN MOCK MD CM:PNTRANS [id number] STAN MOCK M.D. 11/14/16 1154 interface
== END | disposition home or self-care (01) ==
LOC: WOUNDCARE 03:43
DX: L97.122 Non-pressure chronic ulcer of left thigh with fat layer exposed (principal); I89.0 Lymphedema, not elsewhere classified; E66.01 Morbid (severe) obesity due to excess calories; F17.200 Nicotine dependence, unspecified, uncomplicated

== ENCOUNTER → 2016-11-29 | Outpatient (CLI) | payer OTHER ==
--- NOTE | ~2016-11-29 | PR ---
[place], [place] PROGRESS NOTE NAME: CAMRYN RAYMUNDO [facility] #: [id number] UNIT #: [id number] ROOM: DOCTOR: NISH ColemanSTAN BIRTHDATE: [birth year] DOS: 11/29/2016 WOUND CARE PROGRESS NOTE CHIEF COMPLAINT: Chronic wound of the left upper thigh. PHYSICAL EXAMINATION: This is a 56-year-old female with morbid obesity and severe lymphedema. She is status post resection of the left upper thigh pannus back in December 2015 and was left with an open surgical wound. She has been coming to the Wound Clinic for several weeks now, 24 weeks post-surgery, for continued wound care of this open wound in the site. The wound had been steadily improving, but she has had multiple problems with wound infection, cellulitis and had been in the hospital at least on 2 occasions for this problem. She has been out of the hospital for almost a month now, possibly 6 weeks, and the wound has been steadily improving. It has been very difficult to try to find the dressing to fit in the area and to be maintained in the area. She also had problems with severe increasing edema on occasion with lymphedema type ulcer of the distal part of the left calf, which had been healed last week, but now she comes in with a very small open wound on that area. Also, of note, her left lower extremity is much more swollen this week than it had been last week, and she plans on going to the lymphedema clinic in [place] starting next week. She will need a script for this. She has been working back to work and this may have led to some increased edema; otherwise, she has no specific complaints. No fevers, chills or change in any kind of pain or discomfort with the wound. OBJECTIVE: VITAL SIGNS: Stable. Temperature is 98.2, pulse of 84, respirations 20, blood pressure is 110/72. The wound of the left upper thigh is measuring smaller. It is essentially just a crevice at this point, but definitely appears to be healing. There is no necrotic tissue. It is measuring 1 x 12 x 0.3. It looks clean. It still has some maceration around the edges, but overall, it does appear to be healing. No debridement was done. She has a new wound in the distal calf that is measuring 2 x 0.6 x 0.1; it is essentially just denuded skin from likely a blistered area that had opened up from severe edema, but her left distal calf is markedly swollen; it is not tender and there is no sign of cellulitis. ASSESSMENT AND PLAN: Chronic surgical wound of the left upper thigh due to panniculectomy. The wound is now stable and appears to be gradually improving. We will continue with Maxorb, but we will discontinue TheraHoney. There is really no necrotic tissue present. The distal wound is new and appears to be related to the severe increase in edema. We will go ahead and just use Maxorb on this and continue with her 4 x 4s and tubular netting that we use to help keep the dressings in place. She is to follow up in one week, but due to the severe edema, we will go ahead and get a stat Doppler to rule out a deep venous thrombosis. Follow up in Wound Clinic in one week. [place], [place] PROGRESS NOTE NAME: CAMRYN RAYMUNDO UNIT #: [id number] ROOM: DOCTOR: STAN MOCK M.D. BIRTHDATE: [birth year] STAN MOCK MD CM:PATI [id number] STAN MOCK M.D. 11/29/16 1259 interface
== END | disposition home or self-care (01) ==
LOC: US 00:52 → WOUNDCARE 00:52
DX: R60.0 Localized edema (principal)

== ENCOUNTER → 2016-12-13 | Outpatient (CLI) | payer OTHER | END | disposition home or self-care (01) | LOC: WOUNDCARE 00:25 | DX: T81.89XD Other complications of procedures, not elsewhere classified, subsequent encounter (principal); L97.122 Non-pressure chronic ulcer of left thigh with fat layer exposed; I89.0 Lymphedema, not elsewhere classified; Z87.891 Personal history of nicotine dependence; Y83.8 Other surgical procedures as the cause of abnormal reaction of the patient, or of later complication, without mention of misadventure at the time of the procedure ==

== ENCOUNTER → 2016-12-20 | Outpatient (CLI) | payer OTHER | END | disposition home or self-care (01) | LOC: WOUNDCARE 01:09 | DX: T81.89XD Other complications of procedures, not elsewhere classified, subsequent encounter (principal); L97.122 Non-pressure chronic ulcer of left thigh with fat layer exposed; I89.0 Lymphedema, not elsewhere classified; E66.01 Morbid (severe) obesity due to excess calories; Z68.44 Body mass index [BMI] 60.0-69.9, adult; Z87.891 Personal history of nicotine dependence; Y83.8 Other surgical procedures as the cause of abnormal reaction of the patient, or of later complication, without mention of misadventure at the time of the procedure ==

== ENCOUNTER → 2016-12-27 | Outpatient (CLI) | payer OTHER | END | disposition home or self-care (01) | LOC: WOUNDCARE 00:51 | DX: T81.89XD Other complications of procedures, not elsewhere classified, subsequent encounter (principal); L97.122 Non-pressure chronic ulcer of left thigh with fat layer exposed; I89.0 Lymphedema, not elsewhere classified; E66.01 Morbid (severe) obesity due to excess calories; Z87.891 Personal history of nicotine dependence; Y83.8 Other surgical procedures as the cause of abnormal reaction of the patient, or of later complication, without mention of misadventure at the time of the procedure ==

== ENCOUNTER → 2017-01-03 | Outpatient (CLI) | payer OTHER | END | disposition home or self-care (01) | LOC: RESCLI 03:24 → WOUNDCARE 03:24 → RESCLI 11:22 | DX: L97.122 Non-pressure chronic ulcer of left thigh with fat layer exposed (principal); I89.0 Lymphedema, not elsewhere classified; Z87.891 Personal history of nicotine dependence ==

== ENCOUNTER → 2017-01-10 | Outpatient (CLI) | payer OTHER | END | disposition home or self-care (01) | LOC: WOUNDCARE 00:51 | DX: T81.89XD Other complications of procedures, not elsewhere classified, subsequent encounter (principal); L97.122 Non-pressure chronic ulcer of left thigh with fat layer exposed; I89.0 Lymphedema, not elsewhere classified; E66.01 Morbid (severe) obesity due to excess calories; Z68.44 Body mass index [BMI] 60.0-69.9, adult; Z87.891 Personal history of nicotine dependence; Y83.8 Other surgical procedures as the cause of abnormal reaction of the patient, or of later complication, without mention of misadventure at the time of the procedure ==

== ENCOUNTER → 2017-01-31 | Outpatient (CLI) | payer OTHER | END | disposition home or self-care (01) | LOC: WOUNDCARE 01:08 | DX: T81.89XD Other complications of procedures, not elsewhere classified, subsequent encounter (principal); L97.122 Non-pressure chronic ulcer of left thigh with fat layer exposed; E66.01 Morbid (severe) obesity due to excess calories; I89.0 Lymphedema, not elsewhere classified; Z87.891 Personal history of nicotine dependence; Y83.8 Other surgical procedures as the cause of abnormal reaction of the patient, or of later complication, without mention of misadventure at the time of the procedure ==

== ENCOUNTER → 2017-02-21 | Outpatient (CLI) | payer OTHER | END | disposition home or self-care (01) | LOC: WOUNDCARE 03:22 | DX: T81.89XD Other complications of procedures, not elsewhere classified, subsequent encounter (principal); L97.122 Non-pressure chronic ulcer of left thigh with fat layer exposed; I89.0 Lymphedema, not elsewhere classified; E66.01 Morbid (severe) obesity due to excess calories; Z68.44 Body mass index [BMI] 60.0-69.9, adult; Z87.891 Personal history of nicotine dependence; Y83.8 Other surgical procedures as the cause of abnormal reaction of the patient, or of later complication, without mention of misadventure at the time of the procedure ==

== ENCOUNTER → 2017-03-07 | Outpatient (CLI) | payer OTHER | END | disposition home or self-care (01) | LOC: WOUNDCARE 01:52 | DX: T81.89XD Other complications of procedures, not elsewhere classified, subsequent encounter (principal); L97.122 Non-pressure chronic ulcer of left thigh with fat layer exposed; I89.0 Lymphedema, not elsewhere classified; E66.01 Morbid (severe) obesity due to excess calories; Z87.891 Personal history of nicotine dependence; Y83.8 Other surgical procedures as the cause of abnormal reaction of the patient, or of later complication, without mention of misadventure at the time of the procedure ==

== ENCOUNTER → 2017-05-09 | Outpatient (CLI) | payer OTHER | END | disposition home or self-care (01) | LOC: WOUNDCARE 00:42 | DX: T81.89XD Other complications of procedures, not elsewhere classified, subsequent encounter (principal); L97.122 Non-pressure chronic ulcer of left thigh with fat layer exposed; I89.0 Lymphedema, not elsewhere classified; E66.01 Morbid (severe) obesity due to excess calories; Z87.891 Personal history of nicotine dependence; Y83.8 Other surgical procedures as the cause of abnormal reaction of the patient, or of later complication, without mention of misadventure at the time of the procedure ==

== ENCOUNTER 2019-05-08 13:38 | Inpatient (IN) | payer OTHER ==
[2019-05-08] VITALS (11 sets, daily range): BP systolic 96–153; BP diastolic 42–97
[~2019-05-08] VITALS: Ht 177.8 cm; Wt 204.6 kg
[~2019-05-08 13:38] MED LIST changes: +XANAX0.25 MG PO
[2019-05-08 14:26] LABS: BASO # 0.1 10*3/uL (0.0-0.1); BASO % 0.4 % (0.0-1.0); EOS % 0.1 % (1.0-4.0); HEMATOCRIT 50.2 % (37.0-47.0); HEMOGLOBIN 14.8 g/dl (12.0-16.0); LYMPH % 5.8 % (27.0-41.0); MEAN CELL VOLUME 96.4 fl (81.0-99.0); MEAN CORPUSCULAR HGB 28.4 pg (27.0-31.0); MEAN CORPUSCULAR HGB CONC 29.5 g/dl (33.0-37.0); MEAN PLATELET VOLUME 10.7 fl (9.6-12.3); MONO # 0.7 10*3/uL (0.1-1.0); MONO % 3.9 % (3.0-9.0); NEUT # 15.3 10*3/uL (2.3-7.9); NEUT % 89.2 % (47.0-73.0); PLATELET COUNT AUTOMATED 400 10*3/uL (130-400); RED BLOOD COUNT 5.21 10*6/uL (4.10-5.10); RED CELL DISTRI WIDTH 14.3 % (0-14.5); WHITE BLOOD COUNT 17.1 10*3/uL (4.8-10.8)
[2019-05-08 14:39] LABS: BILIRUBIN NEGATIVE (NEGATIVE); CLARITY TURBID (CLEAR); COLOR YELLOW (YELLOW); GLUCOSE NEGATIVE (NEGATIVE); KETONE NEGATIVE (NEGATIVE)
[2019-05-08 14:40] LABS: BLOOD TRACE-INTACT (NEGATIVE); LEUKO ESTERASE 3+ (NEGATIVE); NITRITE NEGATIVE (NEGATIVE); UROBILINOGEN 0.2 E.U./dl (0.2-1.0)
[2019-05-08 14:44] LABS: ALBUMIN 3.2 gm/dl (3.1-4.5); ALKALINE PHOSPHATASE 85 U/L (45-117); BUN 19 mg/dl (7-24); CHLORIDE 105 mmol/L (98-107); CREATININE 0.86 mg/dL (0.55-1.02); SGOT/AST 11 IU/L (3-35); SGPT/ALT 14 U/L (12-78); SODIUM 141 mmol/L (136-145); TOTAL PROTEIN 7.7 gm/dL (6.4-8.2)
[2019-05-08 14:45] LABS: TROPONIN I 0.022 ng/ml (<0.045)
[2019-05-08 14:46] LABS: BACTERIA 4+; EPITHELIAL CELLS 0-2; MUCOUS TRACE; RBC 0-2 rbc/hpf (0-2); TRIP PHOS CRYSTALS 3+
[2019-05-08 14:48] LABS: ACT PARTIAL THROMBO TIME 27.3 SECONDS (20.0-32.1); INTERNATIONAL NORM RATIO 1.2 (2.0-3.5)
[2019-05-08 16:06] LABS: ABG BASE EXCESS 1.4 mmol/L (-2.0-2.0); ARTERIAL BLOOD GAS PH 7.25 (7.35-7.45)
[2019-05-08] MEDS ORDERED: CALMOSEPTINE OI71 GM T (18:35)
[2019-05-08] MEDS ORDERED: DULCOLAX10 M1 R (18:36)
[2019-05-08] MEDS ORDERED: FLUTICASONE-SA1 EAC5 INH (18:37)
[2019-05-08] MEDS ORDERED: Ipratropium Brom3 ML INH (18:38)
[2019-05-08] MEDS ORDERED: MELATONIN5 M1 PO (18:40)
[2019-05-08] MEDS ORDERED: MIRALAX POWDER17 G1 PO (18:41)
[2019-05-08] MEDS ORDERED: MILK OF MA400 MG/51 PO (18:41)
[2019-05-08] MEDS ORDERED: MUCINEX1200 M1 PO (18:42)
[2019-05-08] MEDS ORDERED: NORCO 5-325 TA1 EACH PO (18:42)
[2019-05-08] MEDS ORDERED: SILVADENE20 GM T (18:43)
[2019-05-08] MEDS ORDERED: PROAIR HFA8.5 GM INH (18:43)
[2019-05-08] MEDS ORDERED: TYLENOL EXTRA500 M2 PO (18:44)
[2019-05-08] MEDS ORDERED: ZOFRAN8 M1 PO (18:45)
[2019-05-08 20:48] LABS: ABG BASE EXCESS 2.8 mmol/L (-2.0-2.0); ARTERIAL BLOOD GAS PH 7.285 (7.35-7.45)
[2019-05-09] VITALS: BP 104/66
[2019-05-09 04:00] VITALS: BP 100/58
[2019-05-09 06:27] LABS: BASO % 0.3 % (0.0-1.0); EOS % 0.2 % (1.0-4.0); HEMATOCRIT 46.9 % (37.0-47.0); HEMOGLOBIN 13.7 g/dl (12.0-16.0); LYMPH # 1.4 10*3/uL (1.3-4.4); LYMPH % 15.5 % (27.0-41.0); MEAN CELL VOLUME 96.3 fl (81.0-99.0); MEAN CORPUSCULAR HGB 28.1 pg (27.0-31.0); MEAN CORPUSCULAR HGB CONC 29.2 g/dl (33.0-37.0); MEAN PLATELET VOLUME 10.7 fl (9.6-12.3); MONO # 0.7 10*3/uL (0.1-1.0); MONO % 8.1 % (3.0-9.0); NEUT # 6.7 10*3/uL (2.3-7.9); NEUT % 75.5 % (47.0-73.0); PLATELET COUNT AUTOMATED 335 10*3/uL (130-400); RED BLOOD COUNT 4.87 10*6/uL (4.10-5.10); RED CELL DISTRI WIDTH 14.4 % (0-14.5); WHITE BLOOD COUNT 8.9 10*3/uL (4.8-10.8)
[2019-05-09 06:44] LABS: ALBUMIN 2.8 gm/dl (3.1-4.5); ALKALINE PHOSPHATASE 74 U/L (45-117); BUN 22 mg/dl (7-24); CHLORIDE 105 mmol/L (98-107); CREATININE 0.68 mg/dL (0.55-1.02); POTASSIUM 4.9 mmol/L (3.5-5.1); SGOT/AST 15 IU/L (3-35); SGPT/ALT 18 U/L (12-78); SODIUM 141 mmol/L (136-145); TOTAL PROTEIN 7.2 gm/dL (6.4-8.2)
[2019-05-09 07:42] LABS: ABG BASE EXCESS 3.6 mmol/L (-2.0-2.0); ARTERIAL BLOOD GAS PH 7.297 (7.35-7.45)
[2019-05-09 08:00] VITALS: BP 111/81
[2019-05-09 12:00] VITALS: BP 107/71
[2019-05-09 16:00] VITALS: BP 104/69
[2019-05-09 18:15] LABS: ACT PARTIAL THROMBO TIME 26.2 SECONDS (20.0-32.1); INTERNATIONAL NORM RATIO 1.1 (2.0-3.5)
[2019-05-09 20:00] VITALS: BP 106/58
[2019-05-10] VITALS: BP 100/67
[2019-05-10 04:00] VITALS: BP 102/67
[2019-05-10 08:00] VITALS: BP 102/63
[2019-05-10 12:00] VITALS: BP 94/63
[2019-05-10 16:00] VITALS: BP 115/74
[2019-05-10 20:00] VITALS: BP 107/61
[2019-05-11] VITALS: BP 100/61
[2019-05-11 04:00] VITALS: BP 121/45
[2019-05-11 05:30] LABS: BASO % 0.7 % (0.0-1.0); EOS % 0.5 % (1.0-4.0); HEMATOCRIT 43.3 % (37.0-47.0); HEMOGLOBIN 12.4 g/dl (12.0-16.0); LYMPH # 1.1 10*3/uL (1.3-4.4); LYMPH % 18.3 % (27.0-41.0); MEAN CELL VOLUME 95.6 fl (81.0-99.0); MEAN CORPUSCULAR HGB 27.4 pg (27.0-31.0); MEAN CORPUSCULAR HGB CONC 28.6 g/dl (33.0-37.0); MEAN PLATELET VOLUME 10.9 fl (9.6-12.3); MONO # 0.5 10*3/uL (0.1-1.0); MONO % 8.8 % (3.0-9.0); NEUT # 4.1 10*3/uL (2.3-7.9); NEUT % 71.4 % (47.0-73.0); PLATELET COUNT AUTOMATED 310 10*3/uL (130-400); RED BLOOD COUNT 4.53 10*6/uL (4.10-5.10); RED CELL DISTRI WIDTH 14.1 % (0-14.5); WHITE BLOOD COUNT 5.8 10*3/uL (4.8-10.8)
[2019-05-11 05:42] LABS: ALBUMIN 2.6 gm/dl (3.1-4.5); ALKALINE PHOSPHATASE 61 U/L (45-117); BUN 13 mg/dl (7-24); CHLORIDE 105 mmol/L (98-107); CREATININE 0.41 mg/dL (0.55-1.02); POTASSIUM 4.3 mmol/L (3.5-5.1); SGOT/AST 11 IU/L (3-35); SGPT/ALT 16 U/L (12-78); SODIUM 143 mmol/L (136-145); TOTAL PROTEIN 6.8 gm/dL (6.4-8.2)
[2019-05-11 08:00] VITALS: BP 109/68
[2019-05-11 11:31] LABS: ABG BASE EXCESS 6.7 mmol/L (-2.0-2.0); ARTERIAL BLOOD GAS PH 7.285 (7.35-7.45)
[2019-05-11 12:00] VITALS: BP 103/69
[2019-05-11 16:00] VITALS: BP 112/79
[2019-05-11 20:00] VITALS: BP 120/79
[2019-05-12] VITALS: BP 112/72
[2019-05-12 04:00] VITALS: BP 124/78
[2019-05-12 05:52] LABS: ALBUMIN 2.5 gm/dl (3.1-4.5); ALKALINE PHOSPHATASE 56 U/L (45-117); BUN 10 mg/dl (7-24); CHLORIDE 104 mmol/L (98-107); CREATININE 0.46 mg/dL (0.55-1.02); POTASSIUM 4.3 mmol/L (3.5-5.1); SGOT/AST 9 IU/L (3-35); SGPT/ALT 14 U/L (12-78); SODIUM 142 mmol/L (136-145); TOTAL PROTEIN 6.7 gm/dL (6.4-8.2)
[2019-05-12 06:15] LABS: BASO % 0.6 % (0.0-1.0); EOS # 0.1 10*3/uL (0.0-0.4); EOS % 1.4 % (1.0-4.0); HEMOGLOBIN 12.7 g/dl (12.0-16.0); LYMPH # 1.5 10*3/uL (1.3-4.4); LYMPH % 28.4 % (27.0-41.0); MEAN CELL VOLUME 96.2 fl (81.0-99.0); MEAN CORPUSCULAR HGB 28.4 pg (27.0-31.0); MEAN CORPUSCULAR HGB CONC 29.5 g/dl (33.0-37.0); MEAN PLATELET VOLUME 11.4 fl (9.6-12.3); MONO # 0.6 10*3/uL (0.1-1.0); NEUT % 58.2 % (47.0-73.0); PLATELET COUNT AUTOMATED 285 10*3/uL (130-400); RED BLOOD COUNT 4.47 10*6/uL (4.10-5.10); RED CELL DISTRI WIDTH 13.9 % (0-14.5); WHITE BLOOD COUNT 5.1 10*3/uL (4.8-10.8)
[2019-05-12 08:00] VITALS: BP 123/80
[2019-05-12] MEDS ORDERED: METOPROLOL SUCC50 M1 PO (09:21)
[2019-05-12] MEDS ORDERED: XARE20MG PO (09:28)
[2019-05-12] MEDS ORDERED: HYDROCODONE-AC1 EAC1 PO (09:38)
[2019-05-12 12:00] VITALS: BP 112/87
== END 2019-05-12 15:03 | DRG 201 ==
LOC: ED 13:38 → EDHOLD 16:47 → ICCU 16:47
PROVIDERS: Emergency Medicine; Internal Medicine Cardiovascular Disease; Internal Medicine Critical Care Medicine; ADMIT Internal Medicine
PROC: 5A09357 Assistance with Respiratory Ventilation, Less than 24 Consecutive Hours, Continuous Positive Airway Pressure (ICD-10-PCS; principal; 2019-05-08)
PROC: 5A09357 Assistance with Respiratory Ventilation, Less than 24 Consecutive Hours, Continuous Positive Airway Pressure (ICD-10-PCS; 2019-05-09)
PROC: 5A09357 Assistance with Respiratory Ventilation, Less than 24 Consecutive Hours, Continuous Positive Airway Pressure (ICD-10-PCS; 2019-05-10)
PROC: 5A09357 Assistance with Respiratory Ventilation, Less than 24 Consecutive Hours, Continuous Positive Airway Pressure (ICD-10-PCS; 2019-05-12)
DX: I48.91 Unspecified atrial fibrillation (principal); J96.21 Acute and chronic respiratory failure with hypoxia; I50.33 Acute on chronic diastolic (congestive) heart failure; K59.09 Other constipation; G89.29 Other chronic pain; M47.816 Spondylosis without myelopathy or radiculopathy, lumbar region; I89.0 Lymphedema, not elsewhere classified; R62.7 Adult failure to thrive; E66.2 Morbid (severe) obesity with alveolar hypoventilation; J96.22 Acute and chronic respiratory failure with hypercapnia; D72.829 Elevated white blood cell count, unspecified; J44.1 Chronic obstructive pulmonary disease with (acute) exacerbation; I11.0 Hypertensive heart disease with heart failure; E44.0 Moderate protein-calorie malnutrition; Z91.030 Bee allergy status; Z91.09 Other allergy status, other than to drugs and biological substances; Z88.0 Allergy status to penicillin; Z83.3 Family history of diabetes mellitus; Z98.891 History of uterine scar from previous surgery; Z83.49 Family history of other endocrine, nutritional and metabolic diseases; Z80.8 Family history of malignant neoplasm of other organs or systems; Z87.891 Personal history of nicotine dependence; Z68.44 Body mass index [BMI] 60.0-69.9, adult

== ENCOUNTER 2020-02-25 17:28 | Inpatient (IN) | payer OTHER ==
[~2020-02-25] VITALS: Ht 177.8 cm; Wt 226.9 kg
[~2020-02-25 17:28] MED LIST changes: +CALMOSEPTINE OI71 GM T; +DULCOLAX10 M1 R; +FLUTICASONE-SA1 EAC5 INH; +HYDROCODONE-AC1 EAC1 PO; +Ipratropium Brom3 ML INH; +MELATONIN5 M1 PO; +METOPROLOL SUCC50 M1 PO; +MILK OF MA400 MG/51 PO; +MIRALAX POWDER17 G1 PO; +MUCINEX1200 M1 PO; +NORCO 5-325 TA1 EACH PO; +SILVADENE20 GM T; +TYLENOL EXTRA500 M2 PO; +XARE20MG PO; +ZOFRAN8 M1 PO
[2020-02-25 17:38] VITALS: BP 93/43
[2020-02-25 18:30] LABS: BASO % 0.2 % (0.0-1.0); HEMATOCRIT 42.1 % (37.0-47.0); LYMPH # 0.4 10*3/uL (1.3-4.4); LYMPH % 3.3 % (27.0-41.0); MEAN CELL VOLUME 89.6 fl (81.0-99.0); MEAN CORPUSCULAR HGB 26.8 pg (27.0-31.0); MEAN CORPUSCULAR HGB CONC 29.9 g/dl (33.0-37.0); MEAN PLATELET VOLUME 10.8 fl (9.6-12.3); MONO # 0.3 10*3/uL (0.1-1.0); MONO % 2.5 % (3.0-9.0); NEUT # 11.2 10*3/uL (2.3-7.9); NEUT % 93.4 % (47.0-73.0); PLATELET COUNT AUTOMATED 238 10*3/uL (130-400); RED CELL DISTRI WIDTH 15.7 % (0-14.5)
[2020-02-25 18:44] LABS: ACT PARTIAL THROMBO TIME 36.4 SECONDS (20.0-32.1); INTERNATIONAL NORM RATIO 1.5 (2.0-3.5)
[2020-02-25 18:51] LABS: ALBUMIN 2.3 gm/dl (3.1-4.5); ALKALINE PHOSPHATASE 85 U/L (45-117); BUN 19 mg/dl (7-24); CHLORIDE 99 mmol/L (98-107); CPK 26 U/L (26-192); CREATININE 0.69 mg/dL (0.55-1.02); POTASSIUM 3.8 mmol/L (3.5-5.1); SGOT/AST 15 IU/L (3-35); SGPT/ALT 16 U/L (12-78); SODIUM 135 mmol/L (136-145); TOTAL PROTEIN 7.6 gm/dL (6.4-8.2)
[2020-02-25 18:52] LABS: BILIRUBIN Negative (Negative); BLOOD 2+ (Negative); CLARITY Turbid (Clear); COLOR Yellow (Yellow); GLUCOSE Negative (Negative); KETONE Negative (Negative); LEUKO ESTERASE 3+ (Negative); NITRITE Negative (Negative)
[2020-02-25 18:59] LABS: PH 8.5 (4.5-8.0)
[2020-02-25 19:01] LABS: TROPONIN I < 0.015 ng/ml (<0.045)
[2020-02-25 19:06] LABS: PLATELET SUFFICIENCY NORMAL (NORMAL); TOTAL CELLS COUNTED 100 #CELLS
[2020-02-25 19:12] LABS: BACTERIA 2+; RBC 16-20 rbc/hpf (0-2); TRIP PHOS CRYSTALS 1+; WBC 31-40 wbc/hpf (0-5)
--- NOTE | 2020-02-25 23:00 | NUR ---
CONSULTS COMPLETE FOR DR YOU AND DR FOSTER. COVID SWAB COMPLETE.
[2020-02-26] VITALS (10 sets, daily range): BP systolic 92–109; BP diastolic 39–77
--- NOTE | 2020-02-26 00:09 | NUR ---
PT C/O BEING UNCOMFORTABLE AT THIS TIME. FLOOR SERVICES CONTACTED FOR BED. NEW IV ACCESS GAINED D/T OLD IV NOT BEING INTACT. PT DENIES WOUNDS AT THIS TIME. NO WOUNDS VISIBLE. UNABLE TO VISUALIZE SOME PARTS OF PT BODY D/T MORBID OBESITY. PT NOT ABLE TO PROVIDE ASSISTANCE TO HELP IN VISUALIZATION AT THIS TIME. CALL LIGHT WITH IN REACH. BEDRAILS X2. WILL CONTINUE TO MONITOR.
[2020-02-26] MEDS ORDERED: ASPERCREME76.5 GM T (01:56)
[2020-02-26] MEDS ORDERED: BENADRYL25 M2 PO (01:58)
[2020-02-26] MEDS ORDERED: BUMETANIDE1 MG PO (01:58)
[2020-02-26] MEDS ORDERED: BUSPIRONE HCL10 MG PO (01:59)
[2020-02-26] MEDS ORDERED: DULCOLAX10 M1 R (02:00)
[2020-02-26] MEDS ORDERED: FLEET ENEMA 13133 ML R (02:01)
[2020-02-26] MEDS ORDERED: GABAPENTIN100 M2 PO (02:02)
[2020-02-26] MEDS ORDERED: CHEST CONGESTI400 MG PO (02:04)
[2020-02-26] MEDS ORDERED: IBU800 M1 PO (02:05)
[2020-02-26] MEDS ORDERED: POTASSIUM CHLO20 ME4 PO (02:08)
[2020-02-26] MEDS ORDERED: ZOFRAN4 MG PO (02:12)
[2020-02-26] MEDS ORDERED: ZOLOFT50 MG PO (02:12)
--- NOTE | 2020-02-26 05:04 | NUR ---
PT SLEEPING ON BACK AT THIS TIME. NO DISTRESS NOTED. VSS. PT IN FLOOR BED. CALL LIGHT WITH IN REACH. BEDRAILS X2. WILL CONTINUE TO MONITOR.
[2020-02-26 05:24] LABS: ALBUMIN 2.1 gm/dl (3.1-4.5); ALKALINE PHOSPHATASE 83 U/L (45-117); BUN 22 mg/dl (7-24); CHLORIDE 100 mmol/L (98-107); CHOLESTEROL 93 mg/dL (<200); CREATININE 0.78 mg/dL (0.55-1.02); HDL CHOLESTEROL 32 mg/dl (40-60); LDH 159 U/L (84-246); LDL CHOLESTEROL 45 mg/dL (9-159); POTASSIUM 3.7 mmol/L (3.5-5.1); SGOT/AST 18 IU/L (3-35); SGPT/ALT 16 U/L (12-78); SODIUM 136 mmol/L (136-145); TOTAL PROTEIN 7.4 gm/dL (6.4-8.2); TRIGLYCERIDES 82 mg/dl (<150); VLDL CHOLESTEROL 16 mg/dL (6-40)
[2020-02-26 05:32] LABS: FREE T4 1.15 ng/dl (0.76-1.46)
[2020-02-26 05:35] LABS: CPK 134 U/L (26-192)
[2020-02-26 06:15] LABS: BASO % 0.2 % (0.0-1.0); EOS % 0.4 % (1.0-4.0); HEMATOCRIT 40.9 % (37.0-47.0); LYMPH # 0.6 10*3/uL (1.3-4.4); LYMPH % 6.8 % (27.0-41.0); MEAN CELL VOLUME 92.3 fl (81.0-99.0); MEAN CORPUSCULAR HGB 26.6 pg (27.0-31.0); MEAN CORPUSCULAR HGB CONC 28.9 g/dl (33.0-37.0); MEAN PLATELET VOLUME 11.4 fl (9.6-12.3); MONO # 0.4 10*3/uL (0.1-1.0); MONO % 4.8 % (3.0-9.0); NEUT % 87.4 % (47.0-73.0); PLATELET COUNT AUTOMATED 219 10*3/uL (130-400); RED BLOOD COUNT 4.43 10*6/uL (4.10-5.10); RED CELL DISTRI WIDTH 15.8 % (0-14.5); WHITE BLOOD COUNT 9.2 10*3/uL (4.8-10.8)
[2020-02-26 07:42] LABS: FERRITIN 122.7 ng/mL (10.0-291.0)
[2020-02-26 07:58] LABS: VITAMIN D, 25-HYDROXY 23.6 ng/mL (30-100)
--- NOTE | 2020-02-26 09:41 | NUR ---
GAVE PATIENT BREAKFAST TRAY. PATIENT CONTENT AT THIS TIME. RR EASY AND NON-LABORED. CALL LIGHT WITHIN REACH. WILL CONTINUE TO MONITOR.
--- NOTE | 2020-02-26 09:46 | NUR ---
PATIENT PROVIDED A BREAKFAST TRAY AND WAS ASSSITED IN SETTING HER BED SIDE TABLE UP BY MYSELF. SHE IS RESTING. PROVIDED HER TELEVISION. VITAL SIGNS STABLE . CALL LIGHT WITHIN REACH. WILL CONTINUE TO MONITOR PT. PATIENT HAS NO COMPLAINTS AT THIS TIME.
--- NOTE | 2020-02-26 12:09 | NUR ---
PATIENT RESTING IN BED, APPEARS TO BE IN NO DISTRESS AT THIS TIME. RR EASY AND NON-LABORED. CALL LIGHT WITHIN REACH. PATIENT IS PLACING LUNCH ORDER AT THIS TIME. WILL CONTINUE TO MONITOR.
--- NOTE | 2020-02-26 15:31 | NUR ---
CLEANED PATIENT UP AND TOOK PICTURES OF WOUNDS. WILL CONTINUE TO MONITOR.
--- NOTE | 2020-02-27 00:52 | NUR ---
PT GIVEN BOX LUNCH AT THIS TIME D/T NO DINNER TRAY BEING ORDERED. PT DENIES ALL OTHER NEEDS AT THIS TIME. CALL LIGHT WITH IN REACH. WILL CONTINUE TO MONITOR.
[2020-02-27 05:53] LABS: ALBUMIN 1.9 gm/dl (3.1-4.5); BUN 19 mg/dl (7-24); CHLORIDE 103 mmol/L (98-107); CREATININE 0.49 mg/dL (0.55-1.02); LDH 154 U/L (84-246); POTASSIUM 3.6 mmol/L (3.5-5.1); SGOT/AST 19 IU/L (3-35); SGPT/ALT 16 U/L (12-78); SODIUM 137 mmol/L (136-145); TOTAL PROTEIN 7.3 gm/dL (6.4-8.2)
[2020-02-27 05:54] LABS: ALKALINE PHOSPHATASE 83 U/L (45-117); CPK 151 U/L (26-192)
[2020-02-27 06:37] LABS: HEMATOCRIT 39.3 % (37.0-47.0); MEAN CELL VOLUME 89.7 fl (81.0-99.0); MEAN CORPUSCULAR HGB 26.3 pg (27.0-31.0); MEAN CORPUSCULAR HGB CONC 29.3 g/dl (33.0-37.0); MEAN PLATELET VOLUME 11.8 fl (9.6-12.3); PLATELET COUNT AUTOMATED 259 10*3/uL (130-400); RED BLOOD COUNT 4.38 10*6/uL (4.10-5.10); WHITE BLOOD COUNT 9.7 10*3/uL (4.8-10.8)
[2020-02-27 07:14] LABS: TOTAL CELLS COUNTED 100 #CELLS
[2020-02-27 07:15] LABS: OVALOCYTES FEW; PLATELET SUFFICIENCY NORMAL (NORMAL); POLYCHROMASIA SLIGHT
[2020-02-27 09:58] VITALS: BP 124/79
--- NOTE | 2020-02-27 11:11 | NUR ---
TA FROM [facility]
[2020-02-27 12:47] VITALS: BP 85/53
--- NOTE | 2020-02-27 13:00 | NUR ---
In to see pt at this time.Pt is alert x3.Pt has dimsinhed lung sounds at this time and 97 percent on 3 liters.Abdomen is obese and bs x4.Pt has 22 gauge in lfa with good blood return at this time.Edema noted to b/l leg at this time.Pt has aguero in placed with micheal urine noted and drainage noted from leg.
[2020-02-27 13:35] VITALS: BP 99/69
--- NOTE | 2020-02-27 14:53 | NUR ---
Sbar faxed at this time.
--- NOTE | 2020-02-27 14:56 | NUR ---
Pt turned and large bm noted.Pt has aguero that is draining some but pt states it is leaking.Pt turned and cleaned at this time.Pt unsure of aguero at size at this time and linens changed.
[2020-02-27 14:57] VITALS: BP 114/84
--- NOTE | 2020-02-27 15:15 | NUR ---
Pt taken floor with all belongings at this time and report given to Jocelin mott.
--- NOTE | 2020-02-27 15:20 | NUR ---
[facility] , under the services of LIZ Zhong DO with a diagnosis of PNEUMONIA. Chief complaint is DENIES C/O AT THIS TIME. Patient arrived via bed from ER. Monitor applied. Initial assessment completed. Vital signs taken and recorded. LIZ ZHONG DO notified of admission to the unit. Orders received. See assessment for past medical history, medications and allergies. Patient and/or family oriented to unit. [facility]. Clothing/patient valuable form completed. KIMBERLY WILLOUGHBY L
[2020-02-27 16:00] VITALS: BP 120/54
[2020-02-27 20:00] VITALS: BP 135/90
[2020-02-28] VITALS: BP 122/78
[2020-02-28 06:26] LABS: BASO % 0.3 % (0.0-1.0); HEMATOCRIT 40.2 % (37.0-47.0); LYMPH # 0.6 10*3/uL (1.3-4.4); LYMPH % 7.8 % (27.0-41.0); MEAN CORPUSCULAR HGB 26.2 pg (27.0-31.0); MEAN CORPUSCULAR HGB CONC 28.9 g/dl (33.0-37.0); MEAN PLATELET VOLUME 11.3 fl (9.6-12.3); MONO # 0.4 10*3/uL (0.1-1.0); MONO % 4.8 % (3.0-9.0); NEUT # 6.9 10*3/uL (2.3-7.9); NEUT % 86.1 % (47.0-73.0); PLATELET COUNT AUTOMATED 266 10*3/uL (130-400); RED BLOOD COUNT 4.42 10*6/uL (4.10-5.10); RED CELL DISTRI WIDTH 14.8 % (0-14.5)
[2020-02-28 06:40] LABS: ALKALINE PHOSPHATASE 77 U/L (45-117); BUN 16 mg/dl (7-24); CHLORIDE 103 mmol/L (98-107); CREATININE 0.46 mg/dL (0.55-1.02); LDH 170 U/L (84-246); POTASSIUM 4.2 mmol/L (3.5-5.1); SGOT/AST 16 IU/L (3-35); SGPT/ALT 13 U/L (12-78); SODIUM 140 mmol/L (136-145); TOTAL PROTEIN 7.5 gm/dL (6.4-8.2)
[2020-02-28 06:41] LABS: CPK 75 U/L (26-192)
[2020-02-28 08:00] VITALS: BP 105/59
--- NOTE | 2020-02-28 08:23 | NUR ---
COVID RESULTS NEGATIVE TODAY. REMOVED FROM DROPLET ISOLATION AND PLACED INTO STANDARD ISOLATION AT THIS TIME.
[2020-02-28] MEDS ORDERED: KEFLEX500 M1 PO (09:56)
[2020-02-28] MEDS ORDERED: SEPTDS PO (09:56)
[2020-02-28 09:57] LABS: BILIRUBIN Negative (Negative); BLOOD Negative (Negative); CLARITY Clear (Clear); COLOR Yellow (Yellow); GLUCOSE Negative (Negative); KETONE Negative (Negative); LEUKO ESTERASE Trace (Negative); NITRITE Negative (Negative); PH 5.5 (4.5-8.0); SPECIFIC GRAVITY 1.025 (1.001-1.030)
[2020-02-28 10:17] LABS: RBC 16-20 rbc/hpf (0-2); WBC 31-40 wbc/hpf (0-5)
[2020-02-28 10:18] LABS: BACTERIA 2+; MUCOUS 1+
[2020-02-28 12:00] VITALS: BP 119/53
--- NOTE | 2020-02-28 13:27 | NUR ---
[facility]. NOTIFIED.
--- NOTE | 2020-02-28 13:53 | NUR ---
NOTIFIED OF PATIENT CARE TRANSFER TO HER AND 'S SERVICE. NO NEW ORDERS OBTAINED.
--- NOTE | 2020-02-28 14:40 | NUR ---
TYLENOL GIVEN FOR BILAT LEG PAIN. WILL MONITOR. CALL LIGHT IN REACH.
[2020-02-28 16:00] VITALS: BP 121/59
[2020-02-28 20:00] VITALS: BP 118/84
--- NOTE | 2020-02-28 23:04 | NUR ---
REPORT FROM [facility]. PATIENT RESTING IN BED WATCHING TV WITH NO NEEDS MADE. BED IN LOWEST POSITION, CALL LIGHT IN REACH
[2020-02-29] VITALS: BP 109/80
--- NOTE | 2020-02-29 02:31 | NUR ---
CORTEZ CATHETER OUT AND LAYING IN BED. BALLOON INFLATED WITH 10CC. NEW CORTEZ INSERTED WITH 24, 13 CC SALINE IN BALLOON. PATIENT TOLERATED WELL. BATH GIVEN AND LINEN CHANGED.
[2020-02-29 08:00] VITALS: BP 130/82
--- NOTE | 2020-02-29 08:51 | NUR ---
PATIENT IS LTC AT [facility]. [facility]. PER [facility] THEY ARE MAKING BED CHANGES. ENGINEERING LIBRARIAN EXPLAINED PATIENT IS DISCHARGED AT THIS TIME. SHE UNDERSTOOD. ENGINEERING LIBRARIAN FAXED [facility] UPDATES [facility] INCULDING DISCHARGE SUMMARY/ORDERS. WILL AWAIT TO HEAR BACK FROM [facility] ABOUT THE BED CHANGES AND WILL ARRANGE TRANSPORTATION.
[2020-02-29 09:10] VITALS: BP 122/60
--- NOTE | 2020-02-29 09:48 | NUR ---
PER [facility], THEY ARE ORDERING THIS PATIENT A NEW BED, IT WILL NOT BE IN UNTIL THIS AFTERNOON. ONCE IT IS DELIVERED FL[facility] CORE WELDER WILL SET UP TRANSPORT. FLUX CORE WELDER SPOKE WITH [facility].
--- NOTE | 2020-02-29 11:53 | NUR ---
DELIVERY DRIVER RECEIVED OKAY FROM [facility] TO ARRANGE DISCHARGE. DELIVERY DRIVER SPOKE WITH MARY ANNE BIANCHI. DELIVERY DRIVER SPOKE WITH [facility] AND ARRANGED FOR A 3PM DISCHARGE. DELIVERY DRIVER SPOKE WITH PATIENTS , HE IS AWARE OF DISCHARGE/TRANSPORT. DISCHARGE SUMMARY/ORDERS ALREADY FAXED TO [facility]. WILL FAX DEMOGRAPHICS TO [facility]. [facility] IS AWARE OF TRANSPORT TIME.
[2020-02-29 12:00] VITALS: BP 111/77
--- NOTE | 2020-02-29 12:10 | NUR ---
PATIENT HAVING PERIODS OF FREQUENT PVC'S, IN GROUPS OF 2 OR 3, AND PERIODS OF BIGEMINY (3 BEATS AND THEN 6 BEATS OF THIS). REMAINS AFIB ON MACHINE TOOL OPERATOR, WHICH IS BASELINE RHYTHM. DR. FOSTER'S OFFICE STAFF NOTIFIED OF THESE FINDINGS. PATIENT DENIES ANY SYMPTOMS WITH THE OCCURRENCES.
--- NOTE | 2020-02-29 12:35 | NUR ---
PATIENT TO BE DISCHARGED TO [facility] TODAY AT 3PM BY AMBULANCE SERVICE. COPY OF DISCHARGE INSTRUCTIONS PROVIDED TO PATIENT AND WILL ALSO PROVIDE COPY TO [facility].
--- NOTE | 2020-02-29 13:00 | NUR ---
DR. GONZALES IN TO SEE PATIENT RE: PLAN OF CARE AND TO REVIEW MONITOR STRIPS. NO FURTHER ORDERS OBTAINED AND OK TO PROCEED WITH DISCHARGE, PER MD.
--- NOTE | 2020-02-29 15:41 | NUR ---
PATIENT DISCHARGED TO [facility] BY AMBULANCE, REPORT GIVEN TO RECEIVING NURSE AT THE FACILITY.
== END 2020-02-29 15:41 | disposition other institution (70) | DRG 720 ==
LOC: ED 17:28 → 4E 19:22 → 5E 19:22 → EDHOLD 19:22 → 4E 02-27 14:10 → 5E 02-28 22:35 → EDBD 02-29 15:41
PROVIDERS: Emergency Medicine; Internal Medicine; Student in an Organized Health Care Education/Training Program; ADMIT Internal Medicine; ATTEND Internal Medicine
DX: A41.9 Sepsis, unspecified organism (principal); R65.20 Severe sepsis without septic shock; E66.01 Morbid (severe) obesity due to excess calories; J44.0 Chronic obstructive pulmonary disease with (acute) lower respiratory infection; J45.909 Unspecified asthma, uncomplicated; I89.0 Lymphedema, not elsewhere classified; E43 Unspecified severe protein-calorie malnutrition; E87.1 Hypo-osmolality and hyponatremia; N30.01 Acute cystitis with hematuria; I48.20 Chronic atrial fibrillation, unspecified; I11.0 Hypertensive heart disease with heart failure; J12.89 Other viral pneumonia; R73.9 Hyperglycemia, unspecified; L03.119 Cellulitis of unspecified part of limb; Z20.828 Contact with and (suspected) exposure to other viral communicable diseases; I50.33 Acute on chronic diastolic (congestive) heart failure; J18.9 Pneumonia, unspecified organism; Z68.44 Body mass index [BMI] 60.0-69.9, adult; Z88.0 Allergy status to penicillin; Z88.8 Allergy status to other drugs, medicaments and biological substances; Z98.891 History of uterine scar from previous surgery; Z83.3 Family history of diabetes mellitus; Z84.89 Family history of other specified conditions; Z79.899 Other long term (current) drug therapy

== ENCOUNTER 2020-06-25 13:32 | Inpatient (IN) | payer OTHER ==
[~2020-06-25] VITALS: Ht 177.8 cm; Wt 221.5 kg
[~2020-06-25 13:32] MED LIST changes: +ASPERCREME76.5 GM T; +BENADRYL25 M2 PO; +BUSPIRONE HCL10 MG PO; +CHEST CONGESTI400 MG PO; +FLEET ENEMA 13133 ML R; +GABAPENTIN100 M2 PO; +IBU800 M1 PO; +KEFLEX500 M1 PO; +POTASSIUM CHLO20 ME4 PO; +SEPTDS PO; +ZOFRAN4 MG PO; +ZOLOFT50 MG PO
[2020-06-25 13:33] VITALS: BP 150/111
[2020-06-25 14:07] LABS: BASO % 0.3 % (0.0-1.0); EOS % 0.2 % (1.0-4.0); LYMPH # 0.9 10*3/uL (1.3-4.4); LYMPH % 9.8 % (27.0-41.0); MEAN CELL VOLUME 95.9 fl (81.0-99.0); MEAN CORPUSCULAR HGB 25.9 pg (27.0-31.0); MONO # 0.7 10*3/uL (0.1-1.0); MONO % 7.7 % (3.0-9.0); NEUT # 7.3 10*3/uL (2.3-7.9); NEUT % 81.1 % (47.0-73.0); NUCLEATED RED BLOOD CELL 0.4 % (0.0-0.0); PLATELET COUNT AUTOMATED 283 10*3/uL (130-400); RED CELL DISTRI WIDTH 15.7 % (0-14.5)
[2020-06-25 14:17] LABS: ACT PARTIAL THROMBO TIME 31.9 SECONDS (20.0-32.1); INTERNATIONAL NORM RATIO 1.4 (2.0-3.5)
[2020-06-25 14:23] LABS: ALBUMIN 2.8 gm/dl (3.1-4.5); ALKALINE PHOSPHATASE 89 U/L (45-117); BUN 26 mg/dl (7-24); CHLORIDE 100 mmol/L (98-107); CREATININE 0.98 mg/dL (0.55-1.02); POTASSIUM 4.6 mmol/L (3.5-5.1); SGOT/AST 31 IU/L (3-35); SGPT/ALT 18 U/L (12-78); SODIUM 139 mmol/L (136-145); TOTAL PROTEIN 8.3 gm/dL (6.4-8.2)
[2020-06-25 14:27] LABS: ARTERIAL BLOOD GAS PO2 209.9 (80-90)
[2020-06-25 14:29] LABS: ARTERIAL BLOOD GAS PH 7.185 (7.35-7.45)
[2020-06-25 14:29] LABS: TROPONIN I 0.367 ng/ml (<0.045)
[2020-06-25 17:15] VITALS: BP 102/50
[2020-06-25] MEDS ORDERED: BUMETANIDE1 MG PO ×2 (17:50→17:51)
[2020-06-25] MEDS ORDERED: DITROPAN XL10 MG PO (17:53)
[2020-06-25] MEDS ORDERED: TYLENOL EXTRA500 MG PO (18:15)
[2020-06-25 18:27] LABS: BILIRUBIN Negative (Negative); BLOOD 2+ (Negative); CLARITY Turbid (Clear); COLOR Yellow (Yellow); GLUCOSE Negative (Negative); KETONE Negative (Negative); LEUKO ESTERASE 2+ (Negative); NITRITE Positive (Negative)
[2020-06-25 18:36] LABS: RBC 21-30 rbc/hpf (0-2); WBC 51-100 wbc/hpf (0-5)
[2020-06-25 18:37] LABS: BACTERIA 4+
[2020-06-25 20:00] VITALS: BP 111/60
[2020-06-25 20:03] LABS: ABG BASE EXCESS 6.3 mmol/L (-2.0-2.0); ARTERIAL BLOOD GAS PH 7.264 (7.35-7.45); ARTERIAL BLOOD GAS PO2 102.9 (80-90)
[2020-06-25 23:31] VITALS: BP 107/80
[2020-06-26 04:00] VITALS: BP 113/59
[2020-06-26 04:05] LABS: BASO % 0.4 % (0.0-1.0); EOS # 0.1 10*3/uL (0.0-0.4); EOS % 0.7 % (1.0-4.0); HEMATOCRIT 45.6 % (37.0-47.0); LYMPH % 14.1 % (27.0-41.0); MEAN CELL VOLUME 95.8 fl (81.0-99.0); MEAN CORPUSCULAR HGB 25.4 pg (27.0-31.0); MEAN CORPUSCULAR HGB CONC 26.5 g/dl (33.0-37.0); MEAN PLATELET VOLUME 11.6 fl (9.6-12.3); MONO # 0.7 10*3/uL (0.1-1.0); MONO % 10.8 % (3.0-9.0); NUCLEATED RED BLOOD CELL 0.6 % (0.0-0.0); PLATELET COUNT AUTOMATED 221 10*3/uL (130-400); RED BLOOD COUNT 4.76 10*6/uL (4.10-5.10); RED CELL DISTRI WIDTH 15.8 % (0-14.5); WHITE BLOOD COUNT 6.9 10*3/uL (4.8-10.8)
[2020-06-26 04:17] LABS: BUN 27 mg/dl (7-24); CHLORIDE 104 mmol/L (98-107); CREATININE 0.88 mg/dL (0.55-1.02); POTASSIUM 4.5 mmol/L (3.5-5.1); SODIUM 139 mmol/L (136-145)
[2020-06-26 07:41] LABS: ABG BASE EXCESS 9.8 mmol/L (-2.0-2.0); ARTERIAL BLOOD GAS PH 7.273 (7.35-7.45); ARTERIAL BLOOD GAS PO2 121.3 (80-90)
[2020-06-26 08:00] VITALS: BP 133/94
[2020-06-26 12:00] VITALS: BP 99/54
[2020-06-26 14:20] LABS: ABG BASE EXCESS 6.2 mmol/L (-2.0-2.0); ARTERIAL BLOOD GAS PH 7.276 (7.35-7.45); ARTERIAL BLOOD GAS PO2 108.4 (80-90)
[2020-06-26 16:03] VITALS: BP 102/76
[2020-06-26 19:55] VITALS: BP 97/69
[2020-06-27] VITALS: BP 96/40
[2020-06-27 04:00] VITALS: BP 90/60
[2020-06-27 07:39] LABS: BASO % 0.3 % (0.0-1.0); EOS # 0.1 10*3/uL (0.0-0.4); EOS % 1.4 % (1.0-4.0); LYMPH # 0.8 10*3/uL (1.3-4.4); LYMPH % 11.5 % (27.0-41.0); MEAN CELL VOLUME 93.5 fl (81.0-99.0); MEAN CORPUSCULAR HGB 25.6 pg (27.0-31.0); MEAN CORPUSCULAR HGB CONC 27.4 g/dl (33.0-37.0); MEAN PLATELET VOLUME 10.5 fl (9.6-12.3); MONO # 0.7 10*3/uL (0.1-1.0); MONO % 10.4 % (3.0-9.0); NEUT # 5.4 10*3/uL (2.3-7.9); NEUT % 76.1 % (47.0-73.0); PLATELET COUNT AUTOMATED 228 10*3/uL (130-400); RED BLOOD COUNT 4.49 10*6/uL (4.10-5.10); RED CELL DISTRI WIDTH 15.6 % (0-14.5); WHITE BLOOD COUNT 7.1 10*3/uL (4.8-10.8)
[2020-06-27 08:00] VITALS: BP 98/47
[2020-06-27 08:02] LABS: ARTERIAL BLOOD GAS PO2 101.8 (80-90)
[2020-06-27 08:05] LABS: ABG BASE EXCESS 11.1 mmol/L (-2.0-2.0); ARTERIAL BLOOD GAS PH 7.311 (7.35-7.45)
[2020-06-27 08:19] LABS: ALBUMIN 2.6 gm/dl (3.1-4.5); BUN 24 mg/dl (7-24); CHLORIDE 102 mmol/L (98-107); CREATININE 0.56 mg/dL (0.55-1.02); POTASSIUM 3.7 mmol/L (3.5-5.1); SGOT/AST 16 IU/L (3-35); SGPT/ALT 13 U/L (12-78); SODIUM 141 mmol/L (136-145)
[2020-06-27 08:21] LABS: ALKALINE PHOSPHATASE 78 U/L (45-117); TOTAL PROTEIN 7.2 gm/dL (6.4-8.2)
[2020-06-27 16:00] VITALS: BP 104/51
[2020-06-27 20:00] VITALS: BP 93/51
[2020-06-28] VITALS: BP 99/57
[2020-06-28 04:00] VITALS: BP 105/63
[2020-06-28 06:06] LABS: ALBUMIN 2.5 gm/dl (3.1-4.5); BUN 17 mg/dl (7-24); CHLORIDE 102 mmol/L (98-107); CREATININE 0.45 mg/dL (0.55-1.02); POTASSIUM 3.4 mmol/L (3.5-5.1); SGOT/AST 11 IU/L (3-35); SGPT/ALT 12 U/L (12-78); SODIUM 142 mmol/L (136-145); TOTAL PROTEIN 7.2 gm/dL (6.4-8.2)
[2020-06-28 06:07] LABS: ALKALINE PHOSPHATASE 71 U/L (45-117)
[2020-06-28 06:09] LABS: BASO % 0.6 % (0.0-1.0); EOS # 0.2 10*3/uL (0.0-0.4); EOS % 2.8 % (1.0-4.0); HEMATOCRIT 42.2 % (37.0-47.0); MEAN CELL VOLUME 92.3 fl (81.0-99.0); MEAN CORPUSCULAR HGB 25.8 pg (27.0-31.0); MEAN PLATELET VOLUME 10.8 fl (9.6-12.3); MONO # 0.6 10*3/uL (0.1-1.0); MONO % 11.7 % (3.0-9.0); NEUT # 3.5 10*3/uL (2.3-7.9); NEUT % 65.5 % (47.0-73.0); PLATELET COUNT AUTOMATED 227 10*3/uL (130-400); RED BLOOD COUNT 4.57 10*6/uL (4.10-5.10); RED CELL DISTRI WIDTH 15.7 % (0-14.5); WHITE BLOOD COUNT 5.3 10*3/uL (4.8-10.8)
[2020-06-28 07:27] LABS: ABG BASE EXCESS 18.7 mmol/L (-2.0-2.0); ARTERIAL BLOOD GAS PH 7.4 (7.35-7.45); ARTERIAL BLOOD GAS PO2 68.9 (80-90)
[2020-06-28 08:00] VITALS: BP 105/54
[2020-06-28 12:00] VITALS: BP 104/60
[2020-06-28 16:00] VITALS: BP 103/45
[2020-06-28 20:00] VITALS: BP 97/50
[2020-06-29] VITALS: BP 109/63
[2020-06-29 07:09] LABS: ALBUMIN 2.6 gm/dl (3.1-4.5); ALKALINE PHOSPHATASE 77 U/L (45-117); BUN 16 mg/dl (7-24); CHLORIDE 101 mmol/L (98-107); CREATININE 0.52 mg/dL (0.55-1.02); POTASSIUM 3.6 mmol/L (3.5-5.1); SGOT/AST 10 IU/L (3-35); SGPT/ALT 11 U/L (12-78); SODIUM 143 mmol/L (136-145); TOTAL PROTEIN 7.2 gm/dL (6.4-8.2)
[2020-06-29 07:21] LABS: ABG BASE EXCESS 18.3 mmol/L (-2.0-2.0); ARTERIAL BLOOD GAS PH 7.418 (7.35-7.45); ARTERIAL BLOOD GAS PO2 99.4 (80-90)
[2020-06-29 07:50] VITALS: BP 100/48
[2020-06-29] MEDS ORDERED: ACETAZOLAMIDE500 M4 PO (09:46)
[2020-06-29] MEDS ORDERED: MINOCYCLINE HYD50 MG PO (09:46)
[2020-06-29 12:00] VITALS: BP 110/59
== END 2020-06-29 13:42 | DRG 194 ==
LOC: ED 13:32 → EDHOLD 15:20 → ICCU 15:20 → 5E 06-28 14:23
PROVIDERS: Emergency Medicine; Internal Medicine Critical Care Medicine; ADMIT Internal Medicine; ATTEND Internal Medicine
PROC: 5A09457 Assistance with Respiratory Ventilation, 24-96 Consecutive Hours, Continuous Positive Airway Pressure (ICD-10-PCS; principal; 2020-06-25)
PROC: 5A09357 Assistance with Respiratory Ventilation, Less than 24 Consecutive Hours, Continuous Positive Airway Pressure (ICD-10-PCS; 2020-06-25)
DX: I11.0 Hypertensive heart disease with heart failure (principal); J44.1 Chronic obstructive pulmonary disease with (acute) exacerbation; I48.21 Permanent atrial fibrillation; I50.33 Acute on chronic diastolic (congestive) heart failure; J96.21 Acute and chronic respiratory failure with hypoxia; E43 Unspecified severe protein-calorie malnutrition; J96.22 Acute and chronic respiratory failure with hypercapnia; Z20.822 Contact with and (suspected) exposure to COVID-19; E87.3 Alkalosis; E87.6 Hypokalemia; R26.2 Difficulty in walking, not elsewhere classified; F33.2 Major depressive disorder, recurrent severe without psychotic features; F41.1 Generalized anxiety disorder; E66.2 Morbid (severe) obesity with alveolar hypoventilation; E87.2 Acidosis; L03.116 Cellulitis of left lower limb; L03.115 Cellulitis of right lower limb; J45.40 Moderate persistent asthma, uncomplicated; I87.2 Venous insufficiency (chronic) (peripheral); R62.7 Adult failure to thrive; Z68.45 Body mass index [BMI] 70 or greater, adult; Z79.01 Long term (current) use of anticoagulants; Z88.0 Allergy status to penicillin; Z91.030 Bee allergy status; I48.92 Unspecified atrial flutter; Z88.8 Allergy status to other drugs, medicaments and biological substances; Z98.891 History of uterine scar from previous surgery; Z68.43 Body mass index [BMI] 50.0-59.9, adult; Z83.3 Family history of diabetes mellitus; Z82.49 Family history of ischemic heart disease and other diseases of the circulatory system; Z74.01 Bed confinement status

== ENCOUNTER 2021-01-29 00:44 | Emergency (ER) | payer MEDICARE, MEDICAID ==
[~2021-01-29 00:44] MED LIST changes: +ACETAZOLAMIDE500 M4 PO; +DITROPAN XL10 MG PO; +MINOCYCLINE HYD50 MG PO; +TYLENOL EXTRA500 MG PO
[2021-01-29 02:51] LABS: BASO % 0.2 % (0.0-1.0); EOS # 0.1 10*3/uL (0.0-0.4); EOS % 0.7 % (1.0-4.0); LYMPH # 1.3 10*3/uL (1.3-4.4); LYMPH % 14.4 % (27.0-41.0); MEAN CELL VOLUME 88.3 fl (81.0-99.0); MEAN CORPUSCULAR HGB 26.5 pg (27.0-31.0); MEAN PLATELET VOLUME 10.7 fl (9.6-12.3); MONO # 0.6 10*3/uL (0.1-1.0); NEUT # 6.9 10*3/uL (2.3-7.9); NEUT % 77.5 % (47.0-73.0); PLATELET COUNT AUTOMATED 372 10*3/uL (130-400); RED BLOOD COUNT 4.87 10*6/uL (4.10-5.10); RED CELL DISTRI WIDTH 16.9 % (0-14.5); WHITE BLOOD COUNT 8.9 10*3/uL (4.8-10.8)
[2021-01-29 03:07] LABS: ALBUMIN 2.7 gm/dl (3.1-4.5); ALKALINE PHOSPHATASE 81 U/L (45-117); BUN 19 mg/dl (7-24); CHLORIDE 107 mmol/L (98-107); CREATININE 0.67 mg/dL (0.55-1.02); LIPASE 15 U/L (73-393); POTASSIUM 3.5 mmol/L (3.5-5.1); SGOT/AST 13 IU/L (3-35); SGPT/ALT 17 U/L (12-78); SODIUM 143 mmol/L (136-145); TOTAL PROTEIN 7.7 gm/dL (6.4-8.2)
[2021-01-29 04:28] VITALS: BP 91/58
[2021-01-29] MEDS ORDERED: NITROFURANTOIN100 M9 PO (06:18)
[2021-01-29] MEDS ORDERED: NITROFURANTOIN100 M3 PO (06:20)
== END 2021-01-29 11:07 ==
LOC: ED 00:44
PROVIDERS: Emergency Medicine
DX: N39.0 Urinary tract infection, site not specified (principal); Z91.030 Bee allergy status; Z88.0 Allergy status to penicillin; Z79.899 Other long term (current) drug therapy

== ENCOUNTER 2022-05-15 02:39 | Inpatient (IN) | payer MEDICARE ==
[2022-05-15] VITALS (10 sets, daily range): BP systolic 76–94; BP diastolic 0–59
[~2022-05-15] VITALS: Ht 160 cm; Wt 201.8 kg
[~2022-05-15 02:39] MED LIST changes: +BIOFREEZE118 ML T; +BUMETANIDE2 MG PO; +NITROFURANTOIN100 M3 PO; +NITROFURANTOIN100 M9 PO; +VITAMIN D3125 MC1 PO; +ZOLOFT25 MG PO
[2022-05-15 03:07] LABS: HEMATOCRIT 29.2 % (37.0-47.0); MEAN CELL VOLUME 81.1 fl (81.0-99.0); MEAN CORPUSCULAR HGB 23.1 pg (27.0-31.0); MEAN CORPUSCULAR HGB CONC 28.4 g/dl (33.0-37.0); MEAN PLATELET VOLUME 10.5 fl (9.6-12.3); NUCLEATED RED BLOOD CELL 0.3 % (0.0-0.0); PLATELET COUNT AUTOMATED 422 10*3/uL (130-400); RED CELL DISTRI WIDTH 19.4 % (0-14.5); WHITE BLOOD COUNT 15.2 10*3/uL (4.8-10.8)
[2022-05-15 03:10] LABS: MANUAL DIFF REFLEX YES
[2022-05-15 03:33] LABS: BUN 16 mg/dl (9-23); CHLORIDE 99 mmol/L (98-107); POTASSIUM 3.5 mmol/L (3.4-5.1); THYROID STIM HORMONE (HS) 2.178 uIU/ml (0.550-4.780); TOTAL PROTEIN 7.4 gm/dL (6.0-8.0)
[2022-05-15 03:35] LABS: ALKALINE PHOSPHATASE 5 U/L (46-116); SGPT/ALT < 7 U/L (10-49)
[2022-05-15 03:43] LABS: MICROCYTOSIS SLIGHT; PLATELET SUFFICIENCY HIGH (NORMAL); POLYCHROMASIA SLIGHT; TOTAL CELLS COUNTED 100 #CELLS
[2022-05-15 13:11] LABS: BILIRUBIN Negative (Negative); BLOOD 2+ (Negative); CLARITY Clear (Clear); COLOR Yellow (Yellow); GLUCOSE Negative (Negative); KETONE Trace (Negative); LEUKO ESTERASE 2+ (Negative); NITRITE Positive (Negative); PH 5.5 (4.5-8.0); SPECIFIC GRAVITY >= 1.030 (1.001-1.030)
[2022-05-15 13:21] LABS: BACTERIA 2+; RBC TNTC rbc/hpf (0-2); WBC TNTC wbc/hpf (0-5)
[2022-05-15] MEDS ORDERED: MUCUS RELIEF600 MG PO (19:36)
[2022-05-15] MEDS ORDERED: MAGNESIUM OXID400 MG PO (19:37)
[2022-05-15] MEDS ORDERED: METOCLOPRAMIDE5 MG PO (19:38)
[2022-05-15] MEDS ORDERED: LOPRESSOR50 M1 PO (19:39)
[2022-05-15] MEDS ORDERED: PEPTO BISM525 MG/12 PO (19:41)
[2022-05-15] MEDS ORDERED: SENNA8.6 MG PO (19:46)
[2022-05-15] MEDS ORDERED: SIMETHICONE80 MG PO (19:46)
[2022-05-15] MEDS ORDERED: ACETAMINOPHEN500 M4 PO (19:47)
[2022-05-15] MEDS ORDERED: VITAMIN D350 MC2 PO (19:48)
[2022-05-15] MEDS ORDERED: XARE20MG PO (19:49)
[2022-05-16] VITALS: BP 108/58
[2022-05-16 07:08] LABS: BASO % 0.2 % (0.0-1.0); EOS % 0.7 % (1.0-4.0); HEMATOCRIT 26.4 % (37.0-47.0); LYMPH # 0.7 10*3/uL (1.3-4.4); LYMPH % 11.3 % (27.0-41.0); MEAN CORPUSCULAR HGB 22.4 pg (27.0-31.0); MEAN CORPUSCULAR HGB CONC 26.5 g/dl (33.0-37.0); MEAN PLATELET VOLUME 10.9 fl (9.6-12.3); MONO # 0.5 10*3/uL (0.1-1.0); MONO % 8.7 % (3.0-9.0); NEUT # 4.6 10*3/uL (2.3-7.9); NEUT % 78.6 % (47.0-73.0); PLATELET COUNT AUTOMATED 373 10*3/uL (130-400); RED BLOOD COUNT 3.13 10*6/uL (4.10-5.10); RED CELL DISTRI WIDTH 19.4 % (0-14.5); WHITE BLOOD COUNT 5.9 10*3/uL (4.8-10.8)
[2022-05-16 07:26] LABS: MEAN CELL VOLUME 84.3 fl (81.0-99.0)
[2022-05-16 07:38] LABS: BUN 13 mg/dl (9-23); CHLORIDE 104 mmol/L (98-107); POTASSIUM 3.1 mmol/L (3.4-5.1)
[2022-05-16 08:00] VITALS: BP 97/50
[2022-05-16 12:00] VITALS: BP 80/48
[2022-05-16 18:00] VITALS: BP 110/66
[2022-05-16 20:00] VITALS: BP 154/99
[2022-05-17] VITALS: BP 105/55
[2022-05-17 05:07] VITALS: BP 98/55
[2022-05-17 06:55] LABS: BASO % 0.2 % (0.0-1.0); EOS % 0.7 % (1.0-4.0); HEMATOCRIT 26.8 % (37.0-47.0); LYMPH # 0.5 10*3/uL (1.3-4.4); LYMPH % 9.6 % (27.0-41.0); MEAN CELL VOLUME 86.2 fl (81.0-99.0); MEAN CORPUSCULAR HGB 22.5 pg (27.0-31.0); MEAN CORPUSCULAR HGB CONC 26.1 g/dl (33.0-37.0); MEAN PLATELET VOLUME 11.3 fl (9.6-12.3); MONO # 0.6 10*3/uL (0.1-1.0); MONO % 11.3 % (3.0-9.0); NEUT # 4.2 10*3/uL (2.3-7.9); NEUT % 77.8 % (47.0-73.0); PLATELET COUNT AUTOMATED 410 10*3/uL (130-400); RED BLOOD COUNT 3.11 10*6/uL (4.10-5.10); RED CELL DISTRI WIDTH 19.6 % (0-14.5); WHITE BLOOD COUNT 5.4 10*3/uL (4.8-10.8)
[2022-05-17 07:25] LABS: BUN 12 mg/dl (9-23); CHLORIDE 107 mmol/L (98-107)
[2022-05-17 08:00] VITALS: BP 101/58
[2022-05-17 12:00] VITALS: BP 98/46
[2022-05-17 16:00] VITALS: BP 87/42
[2022-05-17 20:00] VITALS: BP 94/56
[2022-05-18] VITALS: BP 97/57
[2022-05-18 07:03] LABS: BASO % 0.4 % (0.0-1.0); EOS % 0.9 % (1.0-4.0); HEMATOCRIT 28.9 % (37.0-47.0); LYMPH # 0.6 10*3/uL (1.3-4.4); LYMPH % 13.6 % (27.0-41.0); MEAN CORPUSCULAR HGB CONC 25.3 g/dl (33.0-37.0); MEAN PLATELET VOLUME 11.1 fl (9.6-12.3); MONO # 0.6 10*3/uL (0.1-1.0); MONO % 11.9 % (3.0-9.0); NEUT # 3.4 10*3/uL (2.3-7.9); NEUT % 72.8 % (47.0-73.0); PLATELET COUNT AUTOMATED 476 10*3/uL (130-400); RED BLOOD COUNT 3.32 10*6/uL (4.10-5.10); RED CELL DISTRI WIDTH 19.1 % (0-14.5); WHITE BLOOD COUNT 4.7 10*3/uL (4.8-10.8)
[2022-05-18 07:35] LABS: BUN 9 mg/dl (9-23); CHLORIDE 106 mmol/L (98-107); POTASSIUM 4.1 mmol/L (3.4-5.1)
[2022-05-18 08:00] VITALS: BP 96/51
[2022-05-18 12:00] VITALS: BP 95/49
[2022-05-18 16:00] VITALS: BP 119/49
[2022-05-18 20:00] VITALS: BP 96/58
[2022-05-19] VITALS: BP 104/56
[2022-05-19 06:30] LABS: HEMATOCRIT 29.1 % (37.0-47.0); MEAN CELL VOLUME 86.1 fl (81.0-99.0); MEAN CORPUSCULAR HGB 22.2 pg (27.0-31.0); MEAN CORPUSCULAR HGB CONC 25.8 g/dl (33.0-37.0); MEAN PLATELET VOLUME 10.7 fl (9.6-12.3); NUCLEATED RED BLOOD CELL 0.5 % (0.0-0.0); PLATELET COUNT AUTOMATED 477 10*3/uL (130-400); RED BLOOD COUNT 3.38 10*6/uL (4.10-5.10); WHITE BLOOD COUNT 3.8 10*3/uL (4.8-10.8)
[2022-05-19 06:37] LABS: MANUAL DIFF REFLEX YES
[2022-05-19 07:42] LABS: BASOPHILS 2 % (0-1); OVALOCYTES MODERATE; POLYCHROMASIA SLIGHT; TOTAL CELLS COUNTED 100 #CELLS
[2022-05-19 07:43] LABS: PLATELET SUFFICIENCY HIGH (NORMAL)
[2022-05-19 08:00] VITALS: BP 98/48
[2022-05-19 08:12] LABS: BUN 11 mg/dl (9-23); CHLORIDE 105 mmol/L (98-107); POTASSIUM 4.1 mmol/L (3.4-5.1)
[2022-05-19 12:00] VITALS: BP 96/45
[2022-05-19 16:00] VITALS: BP 98/56
[2022-05-19 20:00] VITALS: BP 101/57
[2022-05-20] VITALS: BP 106/61
[2022-05-20 06:23] LABS: HEMATOCRIT 29.3 % (37.0-47.0); MEAN CELL VOLUME 86.4 fl (81.0-99.0); MEAN CORPUSCULAR HGB 22.1 pg (27.0-31.0); MEAN CORPUSCULAR HGB CONC 25.6 g/dl (33.0-37.0); MEAN PLATELET VOLUME 10.9 fl (9.6-12.3); PLATELET COUNT AUTOMATED 543 10*3/uL (130-400); RED BLOOD COUNT 3.39 10*6/uL (4.10-5.10); RED CELL DISTRI WIDTH 18.5 % (0-14.5); WHITE BLOOD COUNT 3.6 10*3/uL (4.8-10.8)
[2022-05-20 06:28] LABS: MANUAL DIFF REFLEX YES
[2022-05-20 07:42] LABS: ATYPICAL LYMPHS 2 % (0-0); PLATELET SUFFICIENCY HIGH (NORMAL); POLYCHROMASIA SLIGHT; TOTAL CELLS COUNTED 100 #CELLS
[2022-05-20 07:43] LABS: OVALOCYTES FEW
[2022-05-20 08:00] VITALS: BP 100/60
[2022-05-20 09:19] LABS: BUN 11 mg/dl (9-23); CHLORIDE 104 mmol/L (98-107); POTASSIUM 4.4 mmol/L (3.4-5.1)
[2022-05-20 12:00] VITALS: BP 102/56
[2022-05-20 15:54] LABS: ABG BASE EXCESS 10.7 mmol/L (-2.0-2.0); ARTERIAL BLOOD GAS PH 7.387 (7.35-7.45); ARTERIAL BLOOD GAS PO2 93.7 (80-90)
[2022-05-20 16:00] VITALS: BP 98/52
[2022-05-20 20:00] VITALS: BP 108/54
[2022-05-21] VITALS: BP 107/68
[2022-05-21 06:35] LABS: HEMATOCRIT 28.8 % (37.0-47.0); LYMPH # 0.6 10*3/uL (1.3-4.4); LYMPH % 14.8 % (27.0-41.0); MEAN CORPUSCULAR HGB 22.7 pg (27.0-31.0); MEAN CORPUSCULAR HGB CONC 26.7 g/dl (33.0-37.0); MEAN PLATELET VOLUME 10.6 fl (9.6-12.3); MONO # 0.4 10*3/uL (0.1-1.0); MONO % 9.2 % (3.0-9.0); NEUT # 3.1 10*3/uL (2.3-7.9); NEUT % 75.5 % (47.0-73.0); NUCLEATED RED BLOOD CELL 0.5 % (0.0-0.0); PLATELET COUNT AUTOMATED 539 10*3/uL (130-400); RED BLOOD COUNT 3.39 10*6/uL (4.10-5.10); RED CELL DISTRI WIDTH 18.3 % (0-14.5); WHITE BLOOD COUNT 4.1 10*3/uL (4.8-10.8)
[2022-05-21 06:55] LABS: BUN 10 mg/dl (9-23); CHLORIDE 99 mmol/L (98-107); POTASSIUM 3.6 mmol/L (3.4-5.1)
[2022-05-21 08:00] VITALS: BP 115/62
[2022-05-21 12:00] VITALS: BP 84/57
[2022-05-21 13:06] VITALS: BP 92/48
[2022-05-21 16:00] VITALS: BP 110/60
[2022-05-21 20:00] VITALS: BP 88/40
[2022-05-22] VITALS: BP 102/58
[2022-05-22 06:25] LABS: HEMATOCRIT 30.2 % (37.0-47.0); LYMPH # 0.7 10*3/uL (1.3-4.4); LYMPH % 17.1 % (27.0-41.0); MEAN CELL VOLUME 84.8 fl (81.0-99.0); MEAN CORPUSCULAR HGB 22.2 pg (27.0-31.0); MEAN CORPUSCULAR HGB CONC 26.2 g/dl (33.0-37.0); MEAN PLATELET VOLUME 10.5 fl (9.6-12.3); MONO # 0.5 10*3/uL (0.1-1.0); MONO % 11.5 % (3.0-9.0); NEUT # 3.1 10*3/uL (2.3-7.9); NEUT % 70.7 % (47.0-73.0); NUCLEATED RED BLOOD CELL 0.5 % (0.0-0.0); PLATELET COUNT AUTOMATED 599 10*3/uL (130-400); RED BLOOD COUNT 3.56 10*6/uL (4.10-5.10); RED CELL DISTRI WIDTH 18.6 % (0-14.5); WHITE BLOOD COUNT 4.3 10*3/uL (4.8-10.8)
[2022-05-22 07:20] LABS: ALKALINE PHOSPHATASE 47 U/L (46-116); BUN 15 mg/dl (9-23); CHLORIDE 101 mmol/L (98-107); POTASSIUM 3.3 mmol/L (3.4-5.1); TOTAL PROTEIN 6.8 gm/dL (6.0-8.0)
[2022-05-22 07:26] LABS: SGPT/ALT < 7 U/L (10-49)
[2022-05-22 08:00] VITALS: BP 106/59
[2022-05-22 09:14] LABS: ABG BASE EXCESS 12.6 mmol/L (-2.0-2.0); ARTERIAL BLOOD GAS PH 7.457 (7.35-7.45); ARTERIAL BLOOD GAS PO2 78.8 (80-90)
[2022-05-22 12:00] VITALS: BP 113/61
[2022-05-22 16:20] VITALS: BP 100/56
[2022-05-22 20:00] VITALS: BP 117/59
[2022-05-23] VITALS: BP 107/62
[2022-05-23 07:07] LABS: EOS % 0.2 % (1.0-4.0); HEMATOCRIT 30.8 % (37.0-47.0); LYMPH # 0.9 10*3/uL (1.3-4.4); LYMPH % 20.2 % (27.0-41.0); MEAN CELL VOLUME 84.6 fl (81.0-99.0); MEAN CORPUSCULAR HGB 22.3 pg (27.0-31.0); MEAN CORPUSCULAR HGB CONC 26.3 g/dl (33.0-37.0); MEAN PLATELET VOLUME 10.6 fl (9.6-12.3); MONO # 0.6 10*3/uL (0.1-1.0); MONO % 12.8 % (3.0-9.0); NEUT # 2.8 10*3/uL (2.3-7.9); NEUT % 66.1 % (47.0-73.0); NUCLEATED RED BLOOD CELL 0.7 % (0.0-0.0); PLATELET COUNT AUTOMATED 578 10*3/uL (130-400); RED BLOOD COUNT 3.64 10*6/uL (4.10-5.10); RED CELL DISTRI WIDTH 18.5 % (0-14.5); WHITE BLOOD COUNT 4.3 10*3/uL (4.8-10.8)
[2022-05-23 07:23] LABS: BUN 19 mg/dl (9-23); CHLORIDE 100 mmol/L (98-107); POTASSIUM 3.6 mmol/L (3.4-5.1)
[2022-05-23 08:00] VITALS: BP 91/50
[2022-05-23 12:00] VITALS: BP 94/50
[2022-05-23 16:01] VITALS: BP 93/58
[2022-05-23 20:00] VITALS: BP 113/63
[2022-05-24] VITALS: BP 103/61
[2022-05-24 06:15] LABS: BUN 22 mg/dl (9-23); CHLORIDE 95 mmol/L (98-107); POTASSIUM 3.1 mmol/L (3.4-5.1)
[2022-05-24 06:32] LABS: BASO % 0.2 % (0.0-1.0); EOS % 0.2 % (1.0-4.0); HEMATOCRIT 31.1 % (37.0-47.0); LYMPH # 0.7 10*3/uL (1.3-4.4); LYMPH % 13.1 % (27.0-41.0); MEAN CELL VOLUME 82.9 fl (81.0-99.0); MEAN CORPUSCULAR HGB 22.4 pg (27.0-31.0); MEAN PLATELET VOLUME 10.6 fl (9.6-12.3); MONO # 0.5 10*3/uL (0.1-1.0); MONO % 9.1 % (3.0-9.0); NEUT % 76.6 % (47.0-73.0); NUCLEATED RED BLOOD CELL 0.6 % (0.0-0.0); PLATELET COUNT AUTOMATED 598 10*3/uL (130-400); RED BLOOD COUNT 3.75 10*6/uL (4.10-5.10); RED CELL DISTRI WIDTH 18.4 % (0-14.5); WHITE BLOOD COUNT 5.2 10*3/uL (4.8-10.8)
[2022-05-24 07:29] LABS: ABG BASE EXCESS 11.5 mmol/L (-2.0-2.0); ARTERIAL BLOOD GAS PH 7.472 (7.35-7.45); ARTERIAL BLOOD GAS PO2 82.6 (80-90)
[2022-05-24 08:00] VITALS: BP 89/53
[2022-05-24 12:00] VITALS: BP 104/49
[2022-05-24 16:00] VITALS: BP 88/51
[2022-05-24 20:00] VITALS: BP 117/53
[2022-05-25] VITALS: BP 116/66
[2022-05-25 03:35] LABS: EOS % 0.3 % (1.0-4.0); HEMATOCRIT 31.6 % (37.0-47.0); LYMPH # 0.8 10*3/uL (1.3-4.4); LYMPH % 12.3 % (27.0-41.0); MEAN CELL VOLUME 82.3 fl (81.0-99.0); MEAN CORPUSCULAR HGB 22.4 pg (27.0-31.0); MEAN CORPUSCULAR HGB CONC 27.2 g/dl (33.0-37.0); MEAN PLATELET VOLUME 10.4 fl (9.6-12.3); MONO # 0.5 10*3/uL (0.1-1.0); MONO % 8.1 % (3.0-9.0); NEUT % 78.5 % (47.0-73.0); NUCLEATED RED BLOOD CELL 0.3 % (0.0-0.0); PLATELET COUNT AUTOMATED 566 10*3/uL (130-400); RED BLOOD COUNT 3.84 10*6/uL (4.10-5.10); RED CELL DISTRI WIDTH 18.5 % (0-14.5); WHITE BLOOD COUNT 6.3 10*3/uL (4.8-10.8)
[2022-05-25 03:47] LABS: BUN 21 mg/dl (9-23); CHLORIDE 100 mmol/L (98-107); POTASSIUM 3.3 mmol/L (3.4-5.1)
[2022-05-25 08:00] VITALS: BP 106/70
[2022-05-25] MEDS ORDERED: GABAPENTIN100 M2 PO (09:27)
[2022-05-25] MEDS ORDERED: PREDNISONE10 MG PO (09:27)
[2022-05-25] MEDS ORDERED: LOPRESSOR25 MG PO (09:27)
[2022-05-25] MEDS ORDERED: MUCINEX1200 M1 PO (09:28)
[2022-05-25 12:00] VITALS: BP 125/58
== END 2022-05-25 16:45 | DRG 871 ==
LOC: ED 02:39 → 4E 05:46 → EDHOLD 05:46 → 4E 12:26
PROVIDERS: Emergency Medicine; Internal Medicine; Internal Medicine Hematology & Oncology; Student in an Organized Health Care Education/Training Program; ADMIT Emergency Medicine; ATTEND Emergency Medicine
PROC: 5A09357 Assistance with Respiratory Ventilation, Less than 24 Consecutive Hours, Continuous Positive Airway Pressure (ICD-10-PCS; principal; 2022-05-19)
PROC: 5A09357 Assistance with Respiratory Ventilation, Less than 24 Consecutive Hours, Continuous Positive Airway Pressure (ICD-10-PCS; 2022-05-22)
PROC: 5A09357 Assistance with Respiratory Ventilation, Less than 24 Consecutive Hours, Continuous Positive Airway Pressure (ICD-10-PCS; 2022-05-24)
DX: A41.9 Sepsis, unspecified organism (principal); E43 Unspecified severe protein-calorie malnutrition; L89.313 Pressure ulcer of right buttock, stage 3; G93.41 Metabolic encephalopathy; I50.33 Acute on chronic diastolic (congestive) heart failure; J90 Pleural effusion, not elsewhere classified; L03.311 Cellulitis of abdominal wall; K56.7 Ileus, unspecified; N39.0 Urinary tract infection, site not specified; Z68.45 Body mass index [BMI] 70 or greater, adult; I48.91 Unspecified atrial fibrillation; B95.7 Other staphylococcus as the cause of diseases classified elsewhere; I95.9 Hypotension, unspecified; Z20.822 Contact with and (suspected) exposure to COVID-19; E87.6 Hypokalemia; R73.9 Hyperglycemia, unspecified; I87.8 Other specified disorders of veins; J44.9 Chronic obstructive pulmonary disease, unspecified; E66.01 Morbid (severe) obesity due to excess calories; D64.9 Anemia, unspecified; I11.0 Hypertensive heart disease with heart failure; S81.802A Unspecified open wound, left lower leg, initial encounter; X58.XXXA Exposure to other specified factors, initial encounter; D75.839 Thrombocytosis, unspecified; I10 Essential (primary) hypertension; Z88.0 Allergy status to penicillin; Z91.030 Bee allergy status; Z91.040 Latex allergy status; Z88.8 Allergy status to other drugs, medicaments and biological substances; Y99.8 Other external cause status; Y92.89 Other specified places as the place of occurrence of the external cause; Y93.89 Activity, other specified; Z98.891 History of uterine scar from previous surgery; Z83.3 Family history of diabetes mellitus; Z79.51 Long term (current) use of inhaled steroids; Z79.899 Other long term (current) drug therapy; E83.52 Hypercalcemia